=== PATIENT | female | born 1940 | race Caucasian/White ===

== ENCOUNTER → 2023-04-14 11:36 | Outpatient (BNVA) | payer MEDICARE, SELFPAY | PROVIDERS: Family Provider Family Medicine; Visit Provider Podiatrist Foot & Ankle Surgery | DX: S90.32XA Contusion of left foot, initial encounter; M19.072 Primary osteoarthritis, left ankle and foot; W01.0XXA Fall on same level from slipping, tripping and stumbling without subsequent striking against object, initial encounter | CPT/HCPCS: 73630; 99203 ==

== ENCOUNTER 2023-07-09 08:30 | Observation (INO) | payer MEDICARE, SELFPAY ==
[2023-07-09] VITALS (12 sets, daily range): BP systolic 130–161; BP diastolic 60–84; PULSE 61–75; RESP 14–20; TEMP 36.4–36.7; O2SAT 95–99
--- NOTE | 2023-07-09 08:40 | CTR_ITS ---
PROCEDURE INFORMATION: Exam: CT Head Without Contrast Exam date and time: 07/09/2023 8:50 AM Age: 82 years old Clinical indication: Stroke-like symptoms; Left facial droop; Additional info: Symptoms of acute stroke TECHNIQUE: Imaging protocol: Computed tomography of the head without contrast. Radiation optimization: All CT scans at this facility use at least one of these dose optimization techniques: automated exposure control; mA and/or kV adjustment per patient size (includes targeted exams where dose is matched to clinical indication); or iterative reconstruction. Other technique: STROKE PROTOCOL was implemented. COMPARISON: No relevant prior studies available. RADIATION DOSE METRICS: Total DLP (mGy-cm): 957.48 FINDINGS: Brain: There is no evidence of acute parenchymal hemorrhage, extra-axial collection, or acute infarction. There is no mass effect, midline shift, or downward herniation. Cerebral ventricles: No ventriculomegaly. Paranasal sinuses: Visualized sinuses are unremarkable. No fluid levels. Mastoid air cells: Visualized mastoid air cells are well aerated. Bones/joints: Unremarkable. No acute fracture. Soft tissues: Unremarkable. CT/CT head thrombolytic [id number] IMPRESSION: No acute intracranial abnormality. ASSESSMENT: ASPECTS ([place] Stroke Program Early CT Score) is 10.
--- NOTE | 2023-07-09 08:51 | ED_ITS ---
HPI - Neuro Symptoms/Deficit 2 General: Chief Complaint: Neuro Symptoms/Deficit Stated Complaint: LEFT FACIAL DROOP Time Seen by Provider: 07/09/23 08:35 Source: patient and family Mode of arrival: EMS History of Present Illness: 82-year-old female presents emergency ro with complaints of left-sided facial droop and weakness. She went to bed last night and was no significant abnormality when she woke up swelling she is complaining of being very weak noticed a little bit of left lower facial drooping and difficulty opening the left eye. EMS was called. They reported a stroke score 0 and no noticeable deficits when they arrived. Patient is has a history of mild dementia her is her main caregiver. She is not on any anticoagulants. Onset (ago): minute(s) Timing confirmed by: spouse Location: left face (Lower facial droop) History of same: No Severity: mild Quality: weak Relieving factors: none Exacerbating factors: none Context: other (Wake-up symptoms) Associated symptoms: Deny chest pain, cough, diaphoresis, fevers/chills, headache(s), anorexia, malaise, nausea, seizures, short of breath, syncope, tingling, vertigo, vomiting or weakness Treatments Prior to Arrival: none Review of Systems 2 Const: Denies: fever(s), chills, malaise or diaphoresis Card: Denies: chest pain or syncope Resp: Denies: dyspnea GI: Denies: abdominal pain, nausea or vomiting : Denies: dysuria, urinary frequency or urinary urgency Musc: Denies: neck pain or back pain Skin/Breast: Denies: rash Neuro: Denies: headache(s) or vertigo PFS ED 2 PFSH: Medical History Hypothyroidism Hypertension Dementia NIH stroke score 2 NIHSS: Level Of Consciousness - 1a: 2 (Due to cognitive deficits, per family at baseline) Level Of Consciousness Questions - 1b: Both Correct Level Of Consciousness Commands - 1c: Both Correct Best Gaze - 2: Normal Visual Clements - 3: No Visual Loss Facial Palsy - 4: Minor Paralysis (Lower left facial) Motor Arm Right - 5: No Drift Motor Arm Left - 5: No Drift M otor Leg Right - 6: No Drift Motor Leg Left - 6: No Drift Limb Ataxia - 7: Absent Sensory - 8: Normal Best Language - 9: No Aphasia Dysarthia - 10: Normal Extinction And Inattention - 11: 0 Score: Total Score: 3 Physical Exam 2 Const: GENERAL APPEARANCE: cooperative and comfortable O RIENTATION/CONSCIOUSNESS: Yes awake HENMT: COMMON NORMALS: normocephalic, atraumatic and hearing grossly normal bilaterally HEAD & SCALP: normocephalic and atraumatic Resp: COMMON NORMALS: normal respiratory effort, No retractions, No use of accessory muscles and clear to auscultation bilaterally AUSCULTATION: clear to auscultation bilaterally Cardio: COMMON NORMALS: regular rate, regular rhythm and No murmurs present (Cardio) RATE: regular rate RHYTHM: regular rhythm GI: COMMON NORMALS: Soft to palpation and No hepatosplenomegaly present A USCULTATION: Yes normoactive bowel sounds PALPATION: Yes Soft to palpation, No Tenderness to palpation present (GI), No Guarding due to palpation present (GI) and Yes No hepatosplenomegaly present Extremity: COMMON NORMALS: normal to inspection, capillary refill normal, no clubbing, cyanosis or edema, no calf tenderness and no pedal edema Skin: COMMON NORMALS: no rashes or lesions noted GENERAL SKIN EXAM: no rashes or lesions noted Course 2 Vital Signs: Vital signs: Vital Signs Temperature 97.5 F L 07/09/23 14:00 Pulse Rate 68 07/09/23 14:00 Respiratory Rate 17 07/09/23 14:00 Blood Pressure 145/80 07/09/23 14:00 Pulse Oximetry 97 07/09/23 13:57 Oxygen Delivery Me thod Room Air 07/09/23 13:57 MDM - Neuro Symptoms/Deficit Medical Decision Making CVA versus TIA. Stroke score is 1 when accounting for dementia issues. She is outside the timeframe for thrombolytics. She does not have a high enough stroke score to be a candidate for embolectomy. Will admit for further workup and instituting secondary prevention medications. Medical Records I reviewed the patient's medical records. Lab Data I reviewed the patient's lab results. 07/09/23 09:15 07/09/23 09:[address] 07/09/23 08:40 IMPRESSION: No acute intracranial abnormality. ASSESSMENT: ASPECTS ([place] Stroke Program Early CT Score) is 10. Laboratory Results WBC 5.22 10^3/uL (3.29-11.43) 07/09/23 09:15 RBC 4.71 10^6/uL (3.85-5.65) 07/09/23 09:15 Hgb 14.20 g/dL (11.27-16.99) 07/09/23 09:15 Hct 41.4 % (36-47) 07/09/23 09:15 MCV 87.9 fl (85-98) 07/09/23 09:15 MCH 30.1 pg (27-33) 07/09/23 09:15 MCHC 34.3 g/dL (30-55) 07/09/23 09:15 RDW 12.6 % (12.1-15.1) 07/09/23 09:15 Plt Count 218 10^3/cmm (157-399) 07/09/23 09:15 MPV 10.3 fL (7.4-10.4) 07/09/23 09:15 Neut % (Auto) 59.0 % 07/09/23 09:15 Lymph % (Auto) 29.9 % 07/09/23 09:15 [place] % (Auto) 9.0 % 07/09/23 09:15 Eos % (Auto) 1.3 % 07/09/23 09:15 Baso % (Auto) 0.6 % 07/09/23 09:15 Neut # (Auto) 3.08 10^3/uL (1.8-7.7) 07/09/23 09:15 Lymph # (Auto) 1.6 10^3/uL (0.8-4.8) 07/09/23 09:15 [place] # (Auto) 0.5 10^3/uL (0.2-0.9) 07/09/23 09:15 Eos # (Auto) 0.1 10^3/uL (0.0-0.8) 07/09/23 09:15 Baso # (Auto) 0.0 10^3/uL (0.0-0.1) 07/09/23 09:15 Nucleated RBC % (auto) 0 % 07/09/23 09:15 Nucleated RBCs # 0.0 /100WBC 07/09/23 09:15 PT 13.80 SECONDS (12.1-14.9) 07/09/23 09:15 INR 1.03 (0.8-1.2) 07/09/23 09:15 APTT 31.2 SECONDS (23.9-36.7) 07/09/23 09:15 Sodium 139 mmol/L (136-145) 07/09/23 09:15 Potassium 3.9 mmol/L (3.5-5.1) 07/09/23 09:15 Chloride 102 mmol/L (98-107) 07/09/23 09:15 Carbon Dioxide 27 mmol/L (22-29) 07/09/23 09:15 Anion Gap 13.9 (5-19) 07/09/23 09:15 BUN 18 mg/dL (8-23) 07/09/23 09:15 Creatinine 0.6 mg/dL (0.5-0.9) 07/09/23 09:15 GFR Calculation Not Reportable 07/09/23 09:15 Glucose 106 mg/dL (65-115) 07/09/23 09:15 Calculated Osmolality 290 mOsm/kg (285-295) 07/09/23 09:15 Calcium 9.5 mg/dL (8.5-10.5) 07/09/23 09:15 Total Bilirubin 0.6 mg/dL (0.15-1.2) 07/09/23 09:15 AST 21 U/L (0-32) 07/09/23 09:15 ALT 28 U/L (0-33) 07/09/23 09:15 Alkaline Phosphatase 67 U/L (35-105) 07/09/23 09:15 Total Protein 7.2 g/dL (6.6-8.7) 07/09/23 09:15 Albumin 3.9 g/dL (3.5-5.2) 07/09/23 09:15 Globulin 3.3 g/dL (1.3-4.6) 07/09/23 09:15 Urine Color Yellow (Yellow) 07/09/23 10:00 Urine Appearance Clear (CLEAR) 07/09/23 10:00 Urine pH 7 (5-7) 07/09/23 10:00 Ur Specific [place] 1.010 (1.005-1.030) 07/09/23 10:00 Urine Protein Neg (Negative) 07/09/23 10:00 Urine Glucose (UA) Norm (Normal) 07/09/23 10:00 Urine Ketones Negative (Negative) 07/09/23 10:00 Urine Blood Neg (Negative) 07/09/23 10:00 Urine Nitrate Negative (Negative) 07/09/23 10:00 Urine Bilirubin Neg (Negative) 07/09/23 10:00 Urine Urobilinogen Norm mg/dL (Negative) 07/09/23 10:00 Ur Leukocyte Esterase Negative (Negative) 07/09/23 10:00 Urine Opiates Screen Negative ng/mL (Negative) 07/09/23 10:00 Ur Barbiturates Screen Negative ng/mL (Negative) 07/09/23 10:00 Ur Phencyclidine Scrn Negative ng/mL (Negative) 07/09/23 10:00 Ur Amphetamines Screen Negative ng/mL (Negative) 07/09/23 10:00 U Benzodiazepines Scrn Negative ng/mL (Negative) 07/09/23 10:00 Urine Cocaine Screen Negative ng/mL (Negative) 07/09/23 10:00 U Marijuana (THC) Screen Negative ng/mL (Negative) 07/09/23 10:00 All radiology interpretation(s) finalized by discharge Discharge Plan Discharge Patient Disposition: Admitted As Inpatient Admit Provider: Cl Tyler Clinical Impression: TIA (transient ischemic attack), Dementia, Hypertension Condition: Stable Coding Level of Care Code ED [employer] Installer for Toña Brady
[2023-07-09 09:31] LABS: Basophils % 0.6 %; Eosinophils # 0.1 10^3/uL (0.0-0.8); Eosinophils % 1.3 %; Hematocrit 41.4 % (36-47); Lymphocytes # 1.6 10^3/uL (0.8-4.8); Lymphocytes % 29.9 %; Mean Corpuscular HGB Conc 34.3 g/dL (30-55); Mean Corpuscular Hemoglobin 30.1 pg (27-33); Mean Corpuscular Volume 87.9 fl (85-98); Mean Platelet Volume 10.3 fL (7.4-10.4); Monocytes # 0.5 10^3/uL (0.2-0.9); Neutrophils # 3.08 10^3/uL (1.8-7.7); Nucleated Red Blood Cells % 0 %; Platelet Count 218 10^3/cmm (157-399); Red Blood Count 4.71 10^6/uL (3.85-5.65); Red Cell Distribution Width 12.6 % (12.1-15.1); White Blood Count 5.22 10^3/uL (3.29-11.43)
[2023-07-09 09:45] LABS: INR 1.03 (0.8-1.2); Partial Thromboplastin Time 31.2 SECONDS (23.9-36.7)
[2023-07-09 09:54] LABS: Alanine Aminotransferase 28 U/L (0-33); Albumin Level 3.9 g/dL (3.5-5.2); Alkaline Phosphatase 67 U/L (35-105); Anion Gap 13.9 (5-19); Aspartate Amino Transferase 21 U/L (0-32); Blood Urea Nitrogen 18 mg/dL (8-23); Calcium 9.5 mg/dL (8.5-10.5); Carbon Dioxide 27 mmol/L (22-29); Chloride 102 mmol/L (98-107); Globulin 3.3 g/dL (1.3-4.6); Glucose 106 mg/dL (65-115); Osmolality Calculated 290 mOsm/kg (285-295); Potassium 3.9 mmol/L (3.5-5.1); Sodium 139 mmol/L (136-145); Total Bilirubin 0.6 mg/dL (0.15-1.2); Total Protein 7.2 g/dL (6.6-8.7)
--- NOTE | 2023-07-09 10:00 | ECG_ITS ---
[facility] Test Date: 2023-07-09 Pat Name: Kimberly Cooper Department: Room: Gender: Female Clinical Data Associate: : 1940 Requested By: Juwan Garcia Order Number: [id number] Itz MD: Perfecto Weiss M.D. Measurements Intervals [place] Rate: 63 P: 63 OK: 162 QRS: 60 QRSD: 92 T: 69 QT: 418 QTc: 428 Interpretive Statements SINUS RHYTHM LOW QRS VOLTAGE IN PRECORDIAL LEADS [QRS DEFLECTION < 1.0 mV IN CHEST LEADS] INCOMPLETE RIGHT BUNDLE BRANCH BLOCK [90+ ms QRS DURATION, TERMINAL R IN V1/V2, 40+ ms S IN I/aVL/V4/V5/V6] No previous ECG available for comparison Electronically Signed On 07-10-2023 8:27:49 GRILL CHEF by Perfecto Weiss M.D. [email or web address]
[2023-07-09 10:09] LABS: Add Urine Microscopic? NO; Charge for UA Resulting for Rev
[2023-07-09 10:12] LABS: Bilirubin Urine Neg (Negative); Blood Urine Neg (Negative); Glucose Urine UA Norm (Normal); Ketones Urine Negative (Negative); Leukocyte Esterase Urine Negative (Negative); Nitrate Urine Negative (Negative); Protein Urine Neg (Negative); Urine Appearance Clear (CLEAR); Urine Color Yellow (Yellow); Urobilinogen Urine Norm (Negative); pH Urine 7 (5-7)
[2023-07-09 10:30] LABS: Amphetamines Screen Urine Negative (Negative); Barbiturates Screen Urine Negative (Negative); Benzodiazepines Screen Urine Negative (Negative); Cocaine Screen Urine Negative (Negative); Opiate Screen Urine Negative (Negative); PCP Screen Urine Negative (Negative); THC Screen Urine Negative (Negative)
--- NOTE | 2023-07-09 10:49 | PC.PHAR ---
pts verified pts medications-pts brought in prescription med bottles and states he thinks he got all the otc items the pt takes
[2023-07-09] MEDS: aspirin 325 mg Tablet PO (12:12)
--- NOTE | 2023-07-09 13:02 | MRR_ITS ---
PROCEDURE INFORMATION: Exam: MR Head Without Contrast Exam date and time: 07/09/2023 4:13 PM Age: 82 years old Clinical indication: Altered mental status/memory loss and speech disturbance; Dysphasia; Additional info: TIA TECHNIQUE: Imaging protocol: Magnetic resonance imaging of the head without contrast. COMPARISON: CT head thrombolytic [id number] 07/09/2023 8:50 AM FINDINGS: Brain: Mild diffuse cerebral atrophy is noted. Cerebral ventricles: Normal. No ventriculomegaly. Bones/joints: Unremarkable. Paranasal sinuses: Normal as visualized. No acute sinusitis. Mastoid air cells: Normal as visualized. No mastoid effusion. Orbital cavities: Unremarkable. Soft tissues: Unremarkable. MR/MR head wo con* [id number] IMPRESSION: I see no acute abnormality. Mild cerebral atrophy noted
--- NOTE | 2023-07-09 13:07 | P.HP_ITS ---
Providers/Chief Complaint 2 Admitting Physician: Cl Tyler Chief Complaint: LEFT FACIAL DROOP History of Present Illness 82-year-old lady with history of dementia, hypertension, hypothyroidism was brought by EMS after they were called after her when trying to wake her up this morning from bed noticed that she had drooping of 1 side of her mouth as well as eye. This finding was apparently then showing some fluctuation on the way to the ER by EMS. Has since completely resolved. She does not provide history, history is to be obtained from family. She seems to remember she had trouble getting up from the bed, although it is not clear how reliable this is. No other motor, speech or vision deficits were reported. She has otherwise been at baseline state of health. Review of Systems 2 Const: Denies: fever(s), chills, body aches or malaise Eyes: Denies: change in vision ENMT: Denies: throat pain Card: Denies: chest pain, edema, pre-syncope or dyspnea on exertion Resp: Denies: dyspnea, productive cough, change in phlegm color or hemoptysis GI: Denies: abdominal pain, nausea, vomiting, diarrhea, constipation, hematochezia or melena : Denies: flank pain, urinary frequency or hematuria Musc: Denies: back pain, joint swelling or joint redness Skin/Breast: Denies: rash or new lesions Neuro: Reports: other (unilateral facial droop involving the eye); Denies: headache(s), numbness in extremities, weakness in extremities, dizziness, confusion or seizure-like activity Medications/Allergies Home Medications Medication Instructions Recorded Confirmed Last Taken Type amlodipine 5 mg tablet 5 mg PO DAILY 07/09/23 07/09/23 07/08/23 History ascorbic acid (vitamin C) 500 mg 500 mg PO BID 07/09/23 07/09/23 Unknown History tablet (Vitamin C) carica papaya (Papaya Enzyme 2 tab PO DAILY 07/09/23 07/09/23 Unknown History tablet) cholecalciferol (vitamin D3) 25 25 mcg PO DAILY 07/09/23 07/09/23 Unknown History mcg (1,000 unit) capsule (Vitamin D3) hydrochlorothiazide 25 mg tablet 25 mg PO DAILY 07/09/23 07/09/23 07/08/23 History levothyroxine 75 mcg tablet 75 mcg PO DAILY 07/09/23 07/09/23 07/08/23 History lisinopril 40 mg tablet 40 mg PO BID 07/09/23 07/09/23 07/08/23 History magnesium 250 mg tablet 250 mg PO DAILY 07/09/23 07/09/23 Unknown History omega-3 fatty acids 1,000 mg 1,000 mg PO DAILY 07/09/23 07/09/23 Unknown History capsule potassium gluconate 595 mg (99 mg) 595 mg PO DAILY 07/09/23 07/09/23 Unknown History tablet vitamin B complex 1 tab PO DAILY 07/09/23 07/09/23 Unknown History vitamin E 268 mg (400 unit) capsule 1 cap PO DAILY 07/09/23 07/09/23 Unknown History Allergies Allergy/AdvReac Type Severity Reaction Status Date / Time Sulfa (Sulfonamide Allergy Unknown Verified 07/09/23 10:43 Antibiotics) PFSH Acute 2 PFSH: Medical History Hypothyroidism Hypertension Dementia Vitals/I&O/Wt Last Vital Signs Temp 98.1 F 07/09/23 09:01 Pulse 68 07/09/23 12:37 Resp 20 H 07/09/23 12:37 BP 137/74 07/09/23 12:37 Pulse Ox 99 07/09/23 12:37 O2 Del Method Room Air 07/09/23 12:37 Physical Exam 2 Narrative: Accompanied by family. Const: COMMON NORMALS: patient oriented x3 and alert GENERAL APPEARANCE: c ooperative ORIENTATION/CONSCIOUSNESS: Yes awake HENMT: COMMON NORMALS: oropharynx normal Neck/C-Spine: COMMON NORMALS: no JVD Resp: COMMON NORMALS: normal respiratory effort and clear to auscultation bilaterally AUSCULTATION: clear to auscultation bilaterally Cardio: COMMON NORMALS: no JVD, regular rhythm, S1 normal heart sound present, S2 normal heart sound present and No murmurs present (Cardio) RHYTHM: regular rhythm HEART SOUNDS: S1 normal heart sound present and S2 normal heart sound present GI: COMMON NORMALS: Normal to inspection, nondistended, normoactive bowel sounds present, Soft to palpation and non-tender PALPATION: Yes Soft to palpation Extremity: COMMON NORMALS: no joint enlargement and no pedal edema Neuro: COMMON NORMALS: patient oriented x3 and moves all extremities S ENSORIUM/ORIENTATION: Yes alert OTHER: She is awake, alert, pleasant, cooperative, following directions readily. No difficulty tracking. Denies dizziness. No facial droop. No aphasia or dysarthria. Visual aguirre full to confrontation. No visual extinction. Sensory exam symmetrical, no sensory extinction. No upper or lower extremity drift. Skin: COMMON NORMALS: no rashes or lesions noted GENERAL SKIN EXAM: no rashes or lesions noted Data 07/09/23 09:15 07/09/23 09:15 A&P Assessment and plan (1) TIA (transient ischemic attack): History had to be obtained from family due to dementia. Somewhat unusual presentation, left-sided facial droop but also reported affecting the eye. Consideration of Meng's palsy but symptoms are entirely resolved. Possible pontine TIA. Risk of recurrent TIA, CVA. Initial hospitalization for additional work up. ER physician discussed with neurologist Dr. Johnson at [facility]. Will place in observation. Additional TIA workup. Reviewed vitals, CBC, INR, PTT, CMP, UA, UDS, head CT. Reviewed ER note, discussed w ER physician. Received aspirin. Start aspirin at home, start statin. Requested cholesterol panel, A1c. She likes to have a pepsi a day and snacks, but not hyperglycemic. Assess cartid duplex. TTE buybble study. Cardiac monitoring for AFib. Monitor blood pressure. Did well on bedside swallow, ok for diet. ST assessment. PT, OT Additional assessment w MR had if possible. Follow up w neurology after discharge. Plan HTN: continue medications. Monitor BP. Cardiac diet. Hypothyroidism: cont levothyroxine. Attestations 2 Medical Necessity Statement*: Place in observation for assessment and management of TIA Diagnoses TIA (transient ischemic attack) G45.9
--- NOTE | 2023-07-09 13:17 | PC.NURSE ---
report called to Bozena OLSEN, pt stable with no current complaints or concerns.
--- NOTE | 2023-07-09 13:40 | USCV_ITS ---
Kimberly Cooper Age: 82 Gender: F : 1940 Exam Date: 07/09/2023 15:16 Ordering Phys: Cl Tyler MD Technologist: Jamie Merino Exam Location: [facility] [place] Indication: tia BP: 145 / 80 HR: 64 Rhythm: Sinus Technical Quality: Adequate MEASUREMENTS (Male / Female) Normal Values 2D ECHO LVOT Diameter 2.0 cm LV Ejection Fraction MOD 2C 58.4 % LV Ejection Fraction 2C AL 60.3 % LA Diameter 3.1 cm LA Width 2.8 cm LA Height 3.5 cm RA Width 2.9 cm RA Height 3.5 cm Aorta at Sinotubular Diameter 2.5 cm IVC Diameter 1.4 cm M-MODE Aortic Annulus Diameter 2.3 cm LA Ao Ratio MM 1.3 MV E Point Septal Separation 0.3 cm DOPPLER AV Peak Velocity 174.0 cm/s LVOT Peak Velocity 120.0 cm/s AV Area Cont Eq vti 2.7 cm squared AV Area Cont Eq pk 2.3 cm squared MV Peak Velocity 137.0 cm/s MV Area PHT 3.3 cm squared Mitral E to A Ratio 0.6 MV E' Velocity 37.0 cm/s Mitral E to MV E' Ratio 10.4 Mitral E to LV E' Lateral Ratio 8.7 Mitral E to LV E' Septal Ratio 13.4 TR Peak Velocity 283.4 cm/s TR Peak Gradient 32.1 mmHg TR Mean Velocity 202.2 cm/s TR Mean Gradient 18.1 mmHg TR Velocity Time Integral 81.8 cm Right Atrial Pressure 3.0 mmHg Pulmonary Artery Systolic Pressu 35.1 mmHg PV Peak Velocity 93.0 cm/s RV Acceleration Time 0.1 s RV Ejection Time 0.3 s RV AcT/ET 0.4 FINDINGS Left Ventricle Normal left ventricular cavity size. Mild left ventricular hypertrophy. Normal left ventricular systolic function. Left ventricular ejection fraction is estimated at 65%. Grade I/IV diastolic dysfunction (abnormal relaxation filling pattern), normal to mildly elevated filling pressures. Right Ventricle Normal right ventricular size and systolic function. Normal right ventricular systolic pressure. Right Atrium The right atrium is normal in size. Left Atrium The left atrium is normal in size. Mitral Valve Structurally normal mitral valve without significant stenosis or prolapse. There is no mitral regurgitation. Aortic Valve Structurally normal trileaflet aortic valve. Mild aortic valve regurgitation. No aortic valve stenosis. Tricuspid Valve Structurally normal tricuspid valve. Trace tricuspid valve regurgitation. Pulmonic Valve Pulmonic valve not well visualized. Pericardium Normal pericardium without effusion. Aorta Normal ascending aorta dimension. IVC The inferior vena cava appears normal. CONCLUSIONS Normal left ventricular cavity size. Mild left ventricular hypertrophy. Normal left ventricular systolic function. Left ventricular ejection fraction is estimated at 65%. Grade I/IV diastolic dysfunction (abnormal relaxation filling pattern), normal to mildly elevated filling pressures. Structurally normal trileaflet aortic valve. Mild aortic valve regurgitation. No aortic valve stenosis. A bubble study was performed. No shunt was identified. There are no prior echocardiogram studies to compare. Dr. Perfecto Weiss MD (Electronically Signed) Final Date: 09 July 2023 17:35 S
[2023-07-09] MEDS: sodium chloride 0.9% 1,000 ML 100 ML IV (15:43)
[2023-07-09] MEDS: lisinopril 20 mg Tablet 40 MG PO (17:40)
[2023-07-09] MEDS: atorvastatin 40 mg Tablet PO (21:16)
[2023-07-10 00:39] VITALS: BP 125/76; PULSE 72; RESP 17; TEMP 36.6; O2SAT 94
[2023-07-10] MEDS: sodium chloride 0.9% 1,000 ML 100 ML IV (02:09)
[2023-07-10 02:15] LABS: Estmated Average Glucose 123; Hemoglobin A1C 5.9 % (4.0-6.0)
[2023-07-10 02:18] LABS: Cholesterol 189 mg/dL (0-200); HDL Cholesterol 45 mg/dL (60-100); LDL Cholesterol Calculated 119 mg/dL (50-129); LDL HDL Ratio 2.64 RATIO (0.00-3.22); Triglycerides 126 mg/dL (0-150)
[2023-07-10 04:44] VITALS: BP 125/78; PULSE 59; RESP 19; TEMP 36.6; O2SAT 94
[2023-07-10 05:45] VITALS: PULSE 58
--- NOTE | 2023-07-10 06:00 | USR_ITS ---
PROCEDURE INFORMATION: Exam: US Duplex Bilateral Extracranial Arteries; Complete; Carotid Arteries Exam date and time: 07/10/2023 7:31 AM Age: 82 years old Clinical indication: Other: TIA TECHNIQUE: Imaging protocol: Real-time duplex ultrasound scan of the bilateral extracranial arteries combining montes scale, color Doppler and spectral waveform analysis with image documentation. Complete exam. Exam focused on the carotid arteries. COMPARISON: CT head thrombolytic [id number] 07/09/2023 8:50 AM FINDINGS: Right common carotid artery: Unremarkable. No occlusion or stenosis. Waveforms are normal. Right internal carotid artery: Unremarkable. No occlusion or stenosis. Waveforms are normal. Right ICA/CCA ratio: Within normal limits. Right external carotid artery: No stenosis in the origin. Right vertebral artery: Unremarkable. Antegrade flow. Left common carotid artery: Unremarkable. No occlusion or stenosis. Waveforms are normal. Left internal carotid artery: Unremarkable. No occlusion or stenosis. Waveforms are normal. Left ICA/CCA ratio: Within normal limits. Left external carotid artery: No stenosis in the origin. Left vertebral artery: Unremarkable. Antegrade flow. US/CV carotid duplex BI* [id number] IMPRESSION: No carotid arterial stenosis. REFERENCES: SRU CRITERIA. The degree of internal carotid artery stenosis is based on criteria defined by the Society of Radiologists in Ultrasound (SRU). Normal is no stenosis. Mild is less than 50% stenosis. Moderate is 50-69% stenosis. Severe is greater than 69% stenosis to near occlusion. Near occlusion is a markedly narrowed lumen. Total occlusion is no detectable patent lumen.
[2023-07-10 07:50] VITALS: BP 150/81; PULSE 67; RESP 15; TEMP 36.8; O2SAT 96
[2023-07-10] MEDS: lisinopril 20 mg Tablet 40 MG PO (08:53)
[2023-07-10] MEDS: hydroCHLOROthiazide 25 mg Tablet PO (08:53)
[2023-07-10] MEDS: levothyroxine 75 mcg Tablet PO (08:53)
[2023-07-10] MEDS: aspirin 81 mg EC Tablet PO (08:54)
[2023-07-10] MEDS: amlodipine 5 mg Tablet PO (08:54)
--- NOTE | 2023-07-10 11:12 | P.DS_ITS ---
Discharge Providers Date of Admission: 07/09/23 11:22 Date of Discharge: July 10, 2023 Attending Provider at Admission: Cl Tyler Attending Provider at Discharge: Cl Tyler Diagnoses at Discharge Discharge Diagnosis (1) TIA (transient ischemic attack): Status: Acute Reason for Visit Reason for Visit: LEFT FACIAL DROOP Brief History: 82-year-old lady with history of dementi a, hypertension, hypothyroidism was brought by EMS after they were called after her when trying to wake her up this morning from bed noticed that she had drooping of 1 side of her mouth as well as eye. This finding was apparently then showing some fluctuation on the way to the ER by EMS. Has since completely resolved. She does not provide history, history is to be obtained from family. She seems to remember she had trouble getting up from the bed, although it is not clear how reliable this is. No other motor, speech or vision deficits were reported. She has otherwise been at baseline state of health. Hospital Course Hospital Course She was additionally assessed in the hospital overnight. Her symptoms had not recurred. She was started on aspirin, statin. Urinalysis was unremarkable. Was assessed by carotid duplex, echocardiogram with bubble study, both unremarkable. A1c was 5.9. She is doing well this morning. Feels ready to return home. Ambulating in room. EKG without atrial fibrillation. Discussed with her and her setting up cardiac monitoring for additional assessment. She is noted to have some very mild bradycardia overnight down into the high 50s. Discussed with the to continue monitoring blood pressures, check blood pressure in case of any abnormal symptoms, in case of recurrence of her prior symptoms or new concerning symptoms discussed to seek medical attention immediately in case of possible stroke. Physical Exam Narrative: Accompanied by family. Const: COMMON NORMALS: patient oriented x3 and alert GENERAL APPEARANCE: cooperative ORIENTATION/CONSCIOUSNESS: Yes awake HENMT: COMMON NORMALS: oropharynx normal Neck/C-Spine: COMMON NORMALS: no JVD Resp: COMMON NORMALS: normal respiratory effort and clear to auscultation bilaterally AUSCULTATION: clear to auscultation bilaterally Cardio: COMMON NORMALS: no JVD, regular rhythm, S1 normal heart sound present, S2 normal heart sound present and No murmurs present (Cardio) RHYTHM: regular rhythm HEART SOUNDS: S1 normal heart sound present and S2 normal heart sound present GI: COMMON NORMALS: Normal to inspection, nondistended, normoactive bowel sounds present, Soft to palpation and non-tender PALPATION: Yes Soft to palp ation Extremity: COMMON NORMALS: no joint enlargement and no pedal edema Neuro: COMMON NORMALS: patient oriented x3 and moves all extremities SENSORIUM/ORIENTATION: Yes alert OTHER: She is awake, alert, pleasant, cooperative, following directions readily. No difficulty tracking. Denies dizziness. No facial droop. No aphasia or dysarthria. Visual aguirre full to confrontation. No visual extinction. Sensory exam symmetrical, no sensory extinction. No upper or lower extremity drift. Skin: COMMON NORMALS: no rashes or lesions noted GENERAL SKIN EXAM: no rashes or lesions noted Discharge Data Studies Completed and Pending Completed Studies During Hospitalization Category Date Time Status CT head thrombolytic [id number] Stat Cat Scan 07/09/23 08:40 Completed MR head wo con* [id number] Routine MRI 07/09/23 13:02 Completed CV carotid duplex BI* [id number] Routine Ultrasound 07/10/23 06:00 Completed CV. echo w/w bubble cont [id number] Routine Ultrasound 07/09/23 13:40 Completed Radiology Impressions Head CT 07/09/23 08:40 IMPRESSION: No acute intracranial abnormality. ASSESSMENT: ASPECTS ([place] Stroke Program Early CT Score) is 10. Head MRI 07/09/23 13:02 IMPRESSION: I see no acute abnormality. Mild cerebral atrophy noted Carotid Doppler Study 07/10/23 06:00 IMPRESSION: No carotid arterial stenosis. REFERENCES: SRU CRITERIA. The degree of internal carotid artery stenosis is based on criteria defined by the Society of Radiologists in Ultrasound (SRU). Normal is no stenosis. Mild is less than 50% stenosis. Moderate is 50-69% stenosis. Severe is greater than 69% stenosis to near occlusion. Near occlusion is a markedly narrowed lumen. Total occlusion is no detectable patent lumen. Laboratory Results WBC 5.22 10^3/uL (3.29-11.43) 07/09/23 09:15 RBC 4.71 10^6/uL (3.85-5.65) 07/09/23 09:15 Hgb 14.20 g/dL (11.27-16.99) 07/09/23 09:15 Hct 41.4 % (36-47) 07/09/23 09:15 MCV 87.9 fl (85-98) 07/09/23 09:15 MCH 30.1 pg (27-33) 07/09/23 09:15 MCHC 34.3 g/dL (30-55) 07/09/23 09:15 RDW 12.6 % (12.1-15.1) 07/09/23 09:15 Plt Count 218 10^3/cmm (157-399) 07/09/23 09:15 MPV 10.3 fL (7.4-10.4) 07/09/23 09:15 Neut % (Auto) 59.0 % 07/09/23 09:15 Lymph % (Auto) 29.9 % 07/09/23 09:15 [place] % (Auto) 9.0 % 07/09/23 09:15 Eos % (Auto) 1.3 % 07/09/23 09:15 Baso % (Auto) 0.6 % 07/09/23 09:15 Neut # (Auto) 3.08 10^3/uL (1.8-7.7) 07/09/23 09:15 Lymph # (Auto) 1.6 10^3/uL (0.8-4.8) 07/09/23 09:15 [place] # (Auto) 0.5 10^3/uL (0.2-0.9) 07/09/23 09:15 Eos # (Auto) 0.1 10^3/uL (0.0-0.8) 07/09/23 09:15 Baso # (Auto) 0.0 10^3/uL (0.0-0.1) 07/09/23 09:15 Nucleated RBC % (auto) 0 % 07/09/23 09:15 Nucleated RBCs # 0.0 /100WBC 07/09/23 09:15 PT 13.80 SECONDS (12.1-14.9) 07/09/23 09:15 INR 1.03 (0.8-1.2) 07/09/23 09:15 APTT 31.2 SECONDS (23.9-36.7) 07/09/23 09:15 Sodium 139 mmol/L (136-145) 07/09/23 09:15 Potassium 3.9 mmol/L (3.5-5.1) 07/09/23 09:15 Chloride 102 mmol/L (98-107) 07/09/23 09:15 Carbon Dioxide 27 mmol/L (22-29) 07/09/23 09:15 Anion Gap 13.9 (5-19) 07/09/23 09:15 BUN 18 mg/dL (8-23) 07/09/23 09:15 Creatinine 0.6 mg/dL (0.5-0.9) 07/09/23 09:15 GFR Calculation Not Reportable 07/09/23 09:15 Glucose 106 mg/dL (65-115) 07/09/23 09:15 Estimat Average Glucose 123 07/10/23 00:00 Hemoglobin A1c 5.9 % (4.0-6.0) 07/10/23 00:00 Calculated Osmolality 290 mOsm/kg (285-295) 07/09/23 09:15 Calcium 9.5 mg/dL (8.5-10.5) 07/09/23 09:15 Total Bilirubin 0.6 mg/dL (0.15-1.2) 07/09/23 09:15 AST 21 U/L (0-32) 07/09/23 09:15 ALT 28 U/L (0-33) 07/09/23 09:15 Alkaline Phosphatase 67 U/L (35-105) 07/09/23 09:15 Total Protein 7.2 g/dL (6.6-8.7) 07/09/23 09:15 Albumin 3.9 g/dL (3.5-5.2) 07/09/23 09:15 Globulin 3.3 g/dL (1.3-4.6) 07/09/23 09:15 Triglycerides 126 mg/dL (0-150) 07/10/23 00:00 Cholesterol 189 mg/dL (0-200) 07/10/23 00:00 LDL Cholesterol, Calc 119 mg/dL (50-129) 07/10/23 00:00 HDL Cholesterol 45 mg/dL (60-100) L 07/10/23 00:00 LDL/HDL Ratio 2.64 RATIO (0.00-3.22) 07/10/23 00:00 Cholesterol/HDL Ratio 4.20 mg/dL (0.0-4.40) 07/10/23 00:00 Urine Color Yellow (Yellow) 07/09/23 10:00 Urine Appearance Clear (CLEAR) 07/09/23 10:00 Urine pH 7 (5-7) 07/09/23 10:00 Ur Specific [place] 1.010 (1.005-1.030) 07/09/23 10:00 Urine Protein Neg (Negative) 07/09/23 10:00 Urine Glucose (UA) Norm (Normal) 07/09/23 10:00 Urine Ketones Negative (Negative) 07/09/23 10:00 Urine Blood Neg (Negative) 07/09/23 10:00 Urine Nitrate Negative (Negative) 07/09/23 10:00 Urine Bilirubin Neg (Negative) 07/09/23 10:00 Urine Urobilinogen Norm mg/dL (Negative) 07/09/23 10:00 Ur Leukocyte Esterase Negative (Negative) 07/09/23 10:00 Urine Opiates Screen Negative ng/mL (Negative) 07/09/23 10:00 Ur Barbiturates Screen Negative ng/mL (Negative) 07/09/23 10:00 Ur Phencyclidine Scrn Negative ng/mL (Negative) 07/09/23 10:00 Ur Amphetamines Screen Negative ng/mL (Negative) 07/09/23 10:00 U Benzodiazepines Scrn Negative ng/mL (Negative) 07/09/23 10:00 Urine Cocaine Screen Negative ng/mL (Negative) 07/09/23 10:00 U Marijuana (THC) Screen Negative ng/mL (Negative) 07/09/23 10:00 Vitals Last Vital Signs Temp 98.3 F 07/10/23 07:50 Pulse 67 07/10/23 07:50 Resp 15 07/10/23 07:50 BP 150/81 07/10/23 07:50 Pulse Ox 96 07/10/23 07:50 O2 Del Method Room Air 07/10/23 07:50 Discharge Plan Discharge Patient Disposition: Home Condition: Stable Prescriptions: New aspirin 81 mg Tablet,Delayed Release (Dr/Ec) 81 mg PO DAILY Qty: 90 0RF atorvastatin 40 mg Tablet 40 mg PO BEDTIME Qty: 90 0RF Continued Fish Oil Concentrate 1,000 mg Capsule 1,000 mg PO DAILY amlodipine 5 mg tablet 5 mg PO DAILY levothyroxine 75 mcg tablet 75 mcg PO DAILY Vitamin C 500 mg Tablet 500 mg PO BID vitamin B complex Tablet 1 tab PO DAILY magnesium 250 mg Tablet 250 mg PO DAILY hydrochlorothiazide 25 mg tablet 25 mg PO DAILY lisinopril 40 mg tablet 40 mg PO BID vitamin E 268 mg (400 unit) Capsule 1 cap PO DAILY Vitamin D3 25 mcg (1,000 unit) Capsule 25 mcg PO DAILY potassium gluconate 595 mg (99 mg) Tablet 595 mg PO DAILY Papaya Enzyme Tablet 2 tab PO DAILY Discharge Orders: Discharge Order (Routine); Ordered 07/10/23 Ordered By: Cl Tyler Other Ambulatory Orders: MCT/Event Monitor 14 Days (Routine) Timeframe: 1 Day Facility: [facility] - Location: Radiology Ordered By: Cl Tyler Referrals: [facility] [Provider Group] - 1 week (TIA) Sumit Gomez [Family Provider] - 4-7 days Discharge Diet: Cardiac Patient Instructions: Aspirin (By mouth), Atorvastatin (By mouth), Transient Ischemic Attack (GEN) Activity Restrictions/Additional Instructions: Follow-up with your primary doctor and neurologist for reassessment after a transient ischemic attack. Call 911 immediately in case of any further recurrence of symptoms or new concerning symptoms. You are being set up with a heart monitor for additional assessment for irregular heartbeat, additionally your heart rate is found to be slightly on the slow side sometimes dipping into 50s. Avoid medications that may slow down your heart rate. You are started on aspirin, avoid injury, bleeding. You are started on cluster medication, please have your primary doctor follow-up your liver parameters to make sure there is no liver toxicity, and let your primary doctor know immediately in case of any diffuse muscle pains or weakness. Continue follow-up with your primary doctor for reassessment and optimization of control of hypertension. Discharge Attestations Time Spent in Discharge Care*: greater than 30 min Quality Metrics Clinical Quality Measures [ No reported AMI, CVA or VTE this stay] Coding Level of Care Code 56387 Total time (in minutes) for Discharge: 45 Diagnoses TIA (transient ischemic attack) G45.9
--- NOTE | 2023-07-10 11:50 | PC.OT ---
Pt declines OT eval due to discharge status.
[2023-07-10 12:04] VITALS: BP 150/81; PULSE 67; RESP 15; TEMP 36.8; O2SAT 96
== END 2023-07-10 12:05 | disposition home or self-care (01) ==
LOC: ER 08:55 → MEDSURG 15:11
PROVIDERS: Admitting Provider Internal Medicine; Emergency Provider Family Medicine; Family Provider Family Medicine; Visit Provider Internal Medicine
DX: G45.9 Transient cerebral ischemic attack, unspecified (principal); R29.703 NIHSS score 3; E03.9 Hypothyroidism, unspecified; I10 Essential (primary) hypertension; F03.90 Unspecified dementia, unspecified severity, without behavioral disturbance, psychotic disturbance, mood disturbance, and anxiety
CPT/HCPCS: 36415; 70450; 70551; 80053; 80061; 80306; 81003; 83036; 85025; 85610; 85730; 93005; 93880; 97161; 99285; C8929; G0378; J7030

== ENCOUNTER 2024-02-03 08:04 | Emergency (ER) | payer MEDICARE, SELFPAY ==
[2024-02-03 08:07] VITALS: BP 135/82; PULSE 85; TEMP 38.1; O2SAT 93
--- NOTE | 2024-02-03 08:09 | CT_ITS ---
WS: [id number] CT HEAD TECHNIQUE: Noncontrast CT of the head obtained from the skullbase to the vertex. CLINICAL INFORMATION: ams COMPARISON: MRI and CT 07/09/2023 DLP: 1067.[address] scans at [facility] use at least one of these dose optimization techniques: automated e xposure control; mA and/or kV adjustment per patient size (includes targeted exams where dose is matc hed to clinical indication); or iterative reconstruction. FINDINGS: No evidence of intracranial hemorrhage or mass effect. Ventricular system and basal cisterns are dodd nt. Mild small vessel changes. Moderate parenchymal volume loss. Encephalomalacia in the RIGHT tempor al lobe unchanged since the prior MRI. Vascular calcification. Mucosal thickening in the ethmoid air cells. Mastoid air cells are well aerated. Normal posterior nasopharynx. CT/CT head wo con* [id number] IMPRESSION: 1. No evidence of intracranial hemorrhage or mass effect. 2. Mild small vessel changes. Moderate parenchymal volume loss. 3. Encephalomalacia in the RIGHT temporal lobe unchanged since the prior MRI. 4. Vascular calcification. 5. No acute intracranial findings.
--- NOTE | 2024-02-03 08:09 | XR_ITS ---
WS: [id number] Examination: XR chest 1V portable [id number] Reason for Exam: ams Date: February 03, 2024 Comparison: None. Findings: The heart is not enlarged. The mediastinum is not widened on this rotated AP portable film There is mild increase in the central markings without overt failure or large effusion. There is no d ense consolidation. XR/XR chest 1V portable [id number] IMPRESSION: There is no edema or consolidation.
--- NOTE | 2024-02-03 08:10 | ED_ITS ---
HPI - General Adult 2 General: Chief complaint: Altered Mental Status Stated complaint: ams Time Seen by Provider: 02/03/24 08:09 Source: EMS Mode of arrival: EMS Limitations: no limitations History of Present Illness: 83-year-old female's had a history of a stroke in the past she also has a history of dementia lives at assisted living per EMS in assisted living states that patient's been more altered weaker and had increased dysarthria since last night her last known normal was yesterday. Per EMS she has some left-sided deficits from her previous stroke along with some dysarthria but states that it is worse than her baseline she had increased confusion she is able to tell me her name here she does have pretty severe dysarthria hard to understand not really able answer any other questions Related Data Home Medications Medication Instructions Recorded Confirmed amlodipine 5 mg tablet 5 mg PO DAILY 07/09/23 01/16/24 ascorbic acid (vitamin C) 500 mg 500 mg PO BID 07/09/23 01/16/24 tablet (Vitamin C) carica papaya (Papaya Enzyme 2 tab PO DAILY 07/09/23 01/16/24 tablet) cholecalciferol (vitamin D3) 25 25 mcg PO DAILY 07/09/23 01/16/24 mcg (1,000 unit) capsule (Vitamin D3) hydrochlorothiazide 25 mg tablet 25 mg PO DAILY 07/09/23 01/16/24 levothyroxine 75 mcg tablet 75 mcg PO DAILY 07/09/23 01/16/24 lisinopril 40 mg tablet 40 mg PO BID 07/09/23 01/16/24 magnesium 250 mg tablet 250 mg PO DAILY 07/09/23 01/16/24 omega-3 fatty acids 1,000 mg 1,000 mg PO DAILY 07/09/23 01/16/24 capsule potassium gluconate 595 mg (99 mg) 595 mg PO DAILY 07/09/23 01/16/24 tablet vitamin B complex 1 tab PO DAILY 07/09/23 01/16/24 vitamin E 268 mg (400 unit) capsule 1 cap PO DAILY 07/09/23 01/16/24 Previous Rx's Medication Instructions Recorded aspirin 81 mg tablet,delayed 81 mg PO DAILY #90 tabs 07/10/23 release atorvastatin 40 mg tablet 40 mg PO BEDTIME #90 tabs 07/10/23 Allergies Allergy/AdvReac Type Severity Reaction Status Date / Time Sulfa (Sulfonamide Allergy Unknown Verified 02/03/24 08:15 Antibiotics) Review of Systems 2 General: Reports: ROS unobtainable due to mental status PFSH ED 2 PFSH: Medical History Hypothyroidism Hypertension Dementia Physical Exam 2 Const: COMMON NORMALS: negative for patient oriented x3 HENMT: COMMON NORMALS: normocephalic and atraumatic HEAD & SCALP: n ormocephalic and atraumatic Eye: COMMON NORMALS: Equal, round and reactive pupils present and EOMs intact bilaterally PUPIL: Yes Equal, round and reactive pupils present Neck/C-Spine: COMMON NORMALS: full ROM and supple Chest: COMMONS NORMALS: normal inspection of the chest Resp: COMMON NORMALS: normal respiratory effort, No retractions, No use of accessory muscles and clear to auscultation bilaterally AUSCULTATION: clear to auscultation bilaterally Cardio: COMMON NORMALS: regular rate, regular rhythm and No murmurs present (Cardio) RATE: regular rate RHYTHM: regular rhythm GI: COMMON NORMALS: Normal to inspection, nondistended, normoactive bowel sounds present, Soft to palpation, non-tender and no masses PALPATION: Yes Soft to palpation Extremity: COMMON NORMALS: normal to inspection and full ROM Neuro: COMMON NORMALS: moves all extremities; negative for patient oriented x3 Psych: COMMON NORMALS: mental status grossly normal, Normal thought process present and cooperative THOUGHT PROCESS: Normal thought process present Skin: COMMON NORMALS: no rashes or lesions noted and no wounds GENERAL SKIN EXAM: no rashes or lesions noted Course 2 Vital Signs: Vital signs: Vital Signs Temperature 98.8 F 02/03/24 09:57 Pulse Rate 81 02/03/24 09:57 Blood Pressure 127/80 02/03/24 09:57 Pulse Oximetry 93 02/03/24 09:57 Oxygen Delivery Me thod Room Air 02/03/24 08:07 MDM - General Adult Medical Decision Making Patient presents here with the fever some slight increased weakness I spoke to family she is at her baseline mental status. She does have COVID likely causing the symptoms no signs of being septic white counts normal did speak to family feels she is stable for discharge back to [place] her she is to have Motrin Tylenol for fever return if worsening they understand agree to plan Medical Records I reviewed the patient's medical records. Lab Data I reviewed the patient's lab results. 02/03/24 08:21 02/03/24 08:21 Radiology Impressions Chest X-Ray 02/03/24 08:09 IMPRESSION: There is no edema or consolidation. Head CT 02/03/24 08:09 IMPRESSION: 1. No evidence of intracranial hemorrhage or mass effect. 2. Mild small vessel changes. Moderate parenchymal volume loss. 3. Encephalomalacia in the RIGHT temporal lobe unchanged since the prior MRI. 4. Vascular calcification. 5. No acute intracranial findings. Laboratory Results WBC 8.46 10^3/uL (3.29-11.43) 02/03/24 08:21 RBC 4.74 10^6/uL (3.85-5.65) 02/03/24 08:21 Hgb 14.10 g/dL (11.27-16.99) 02/03/24 08:21 Hct 41.7 % (36-47) 02/03/24 08:21 MCV 88.0 fl (85-98) 02/03/24 08:21 MCH 29.7 pg (27-33) 02/03/24 08:21 MCHC 33.8 g/dL (30-55) 02/03/24 08:21 RDW 13.2 % (12.1-15.1) 02/03/24 08:21 Plt Count 226 10^3/cmm (157-399) 02/03/24 08:21 MPV 10.0 fL (7.4-10.4) 02/03/24 08:21 Neut % (Auto) 79.5 % 02/03/24 08:21 Lymph % (Auto) 8.9 % 02/03/24 08:21 [place] % (Auto) 10.6 % 02/03/24 08:21 Eos % (Auto) 0.2 % 02/03/24 08:21 Baso % (Auto) 0.6 % 02/03/24 08:21 Neut # (Auto) 6.72 10^3/uL (1.8-7.7) 02/03/24 08:21 Lymph # (Auto) 0.8 10^3/uL (0.8-4.8) 02/03/24 08:21 [place] # (Auto) 0.9 10^3/uL (0.2-0.9) 02/03/24 08:21 Eos # (Auto) 0.0 10^3/uL (0.0-0.8) 02/03/24 08:21 Baso # (Auto) 0.1 10^3/uL (0.0-0.1) 02/03/24 08:21 Nucleated RBC % (auto) 0 % 02/03/24 08:21 Nucleated RBCs # 0.0 /100WBC 02/03/24 08:21 PT 14.60 SECONDS (12.1-14.9) 02/03/24 08:21 INR 1.10 (0.8-1.2) 02/03/24 08:21 Sodium 131 mmol/L (136-145) L 02/03/24 08:21 Potassium 3.3 mmol/L (3.5-5.1) L 02/03/24 08:21 Chloride 95 mmol/L (98-107) L 02/03/24 08:21 Carbon Dioxide 20 mmol/L (22-29) L 02/03/24 08:21 Anion Gap 19.3 (5-19) H 02/03/24 08:21 BUN 10 mg/dL (8-23) 02/03/24 08:21 Creatinine 0.5 mg/dL (0.5-0.9) 02/03/24 08:21 GFR Calculation Not Reportable 02/03/24 08:21 Glucose 111 mg/dL (65-115) 02/03/24 08:21 Calculated Osmolality 272 mOsm/kg (285-295) L 02/03/24 08:21 Calcium 8.9 mg/dL (8.5-10.5) 02/03/24 08:21 Magnesium 1.8 mg/dL (1.7-2.3) 02/03/24 08:21 Total Bilirubin 0.8 mg/dL (0.15-1.2) 02/03/24 08:21 AST 21 U/L (0-32) 02/03/24 08:21 ALT 23 U/L (0-33) 02/03/24 08:21 Alkaline Phosphatase 75 U/L (35-105) 02/03/24 08:21 Total Protein 6.7 g/dL (6.6-8.7) 02/03/24 08:21 Albumin 3.7 g/dL (3.5-5.2) 02/03/24 08:21 Globulin 3.0 g/dL (1.3-4.6) 02/03/24 08:21 Lipase 12 U/L (13-60) L 02/03/24 08:21 TSH 1.74 uIU/mL (0.27-4.20) 02/03/24 08:21 Urine Color Yellow (Yellow) 02/03/24 08:30 Urine Appearance Clear (CLEAR) 02/03/24 08:30 Urine pH 6.5 (5-7) 02/03/24 08:30 Ur Specific [place] 1.013 (1.005-1.030) 02/03/24 08:30 Urine Protein Negative (Negative) 02/03/24 08:30 Urine Glucose (UA) Negative (Normal) 02/03/24 08:30 Urine Ketones Negative (Negative) 02/03/24 08:30 Urine Blood 1+ (Negative) A 02/03/24 08:30 Urine Nitrate Negative (Negative) 02/03/24 08:30 Urine Bilirubin Negative (Negative) 02/03/24 08:30 Urine Urobilinogen 1.0 mg/dL (Negative) 02/03/24 08:30 Ur Leukocyte Esterase Negative (Negative) 02/03/24 08:30 Urine RBC 6-10 /hpf (0-2) 02/03/24 08:30 Urine WBC 0-5 /hpf (0-5) 02/03/24 08:30 Ur Squamous Epith Cells 0-5 /hpf (0-5) 02/03/24 08:30 Amorphous Sediment Not Reportable 02/03/24 08:30 Urine Bacteria None seen /hpf (NONE) 02/03/24 08:30 Hyaline Casts 0.81 /lpf 02/03/24 08:30 SARS-CoV-2 Ag (Rapid) positive (Negative) H 02/03/24 08:32 All radiology interpretation(s) finalized by discharge EKG Data EKG 1: I personally reviewed and interpreted this EKG as follows: EKG interpretation date: 02/03/24 EKG interpretation time: 09:03 Interpretation: nsr hr [address] elevation qrs 91 qtc 415 Computer generated interpretation: Chest X-Ray 02/03/24 08:09 IMPRESSION: There is no edema or consolidation. Head CT 02/03/24 08:09 IMPRESSION: 1. No evidence of intracranial hemorrhage or mass effect. 2. Mild small vessel changes. Moderate parenchymal volume loss. 3. Encephalomalacia in the RIGHT temporal lobe unchanged since the prior MRI. 4. Vascular calcification. 5. No acute intracranial findings. Discharge Plan Discharge Patient Disposition: Home Clinical Impression: COVID-19 Condition: Stable Prescriptions: No Action omega-3 fatty acids 1,000 mg Capsule 1,000 mg PO DAILY amlodipine 5 mg tablet 5 mg PO DAILY levothyroxine 75 mcg tablet 75 mcg PO DAILY Vitamin C 500 mg Tablet 500 mg PO BID vitamin B complex Tablet 1 tab PO DAILY magnesium 250 mg Tablet 250 mg PO DAILY hydrochlorothiazide 25 mg tablet 25 mg PO DAILY lisinopril 40 mg tablet 40 mg PO BID vitamin E 268 mg (400 unit) Capsule 1 cap PO DAILY Vitamin D3 25 mcg (1,000 unit) Capsule 25 mcg PO DAILY potassium gluconate 595 mg (99 mg) Tablet 595 mg PO DAILY Papaya Enzyme Tablet 2 tab PO DAILY atorvastatin 40 mg Tablet 40 mg PO BEDTIME Qty: 90 0RF aspirin 81 mg Tablet,Delayed Release (Dr/Ec) 81 mg PO DAILY Qty: 90 0RF Discharge Orders: Discharge ED (Routine); Ordered 02/03/24 Ordered By: José Miguel Mack Referrals: Sumit Ramirez DO [Primary Care Provider] - 4-7 days Sumit Gomez [Family Provider] - Discharge Diet: Advance as tolerated Discharge Activity: Resume usual activity Patient Instructions: COVID-19 (Coronavirus Disease 2019) (ED) Coding Level of Care Code ED Can Filling And Closing Machine Tender for [place] NIH stroke score NIHSS Level Of Consciousness - 1a: 0 Level Of Consciousness Questions - 1b: Both Correct Level Of Consciousness Commands - 1c: Both Correct Best Gaze - 2: Normal Visual Clements - 3: No Visual Loss Facial Palsy - 4: Minor Paralysis Motor Arm Right - 5: No Drift Motor Arm Left - 5: No Drift Motor Leg Right - 6: No Drift Motor Leg Left - 6: Drift Limb Ataxia - 7: Absent Sensory - 8: Normal Best Language - 9: No Aphasia Dysarthia - 10: Severe Dysarthia Extinction And Inattention - 11: 0 Score Total Score: 4
[2024-02-03 08:26] LABS: Basophils # 0.1 10^3/uL (0.0-0.1); Basophils % 0.6 %; Eosinophils % 0.2 %; Hematocrit 41.7 % (36-47); Lymphocytes # 0.8 10^3/uL (0.8-4.8); Lymphocytes % 8.9 %; Mean Corpuscular HGB Conc 33.8 g/dL (30-55); Mean Corpuscular Hemoglobin 29.7 pg (27-33); Monocytes # 0.9 10^3/uL (0.2-0.9); Monocytes % 10.6 %; Neutrophils # 6.72 10^3/uL (1.8-7.7); Neutrophils % 79.5 %; Nucleated Red Blood Cells % 0 %; Platelet Count 226 10^3/cmm (157-399); Red Blood Count 4.74 10^6/uL (3.85-5.65); Red Cell Distribution Width 13.2 % (12.1-15.1); White Blood Count 8.46 10^3/uL (3.29-11.43)
[2024-02-03] MEDS: sodium chloride 0.9% 500 ML IV (08:29)
[2024-02-03 08:35] LABS: Charge for UA Resulting for Rev
[2024-02-03] MEDS: acetaminophen 325 mg Tablet 650 MG PO (08:50)
[2024-02-03 08:56] LABS: Bilirubin Urine Negative (Negative); Blood Urine 1+ (Negative); Glucose Urine UA Negative (Normal); Ketones Urine Negative (Negative); Leukocyte Esterase Urine Negative (Negative); Nitrate Urine Negative (Negative); Protein Urine Negative (Negative); Specific Gravity, Urine 1.013 (1.005-1.030); Urine Appearance Clear (CLEAR); Urine Color Yellow (Yellow); pH Urine 6.5 (5-7)
[2024-02-03 08:59] LABS: Bacteria Urine None Seen /hpf; Hyaline Casts Urine 0.81 /lpf; Squamous Epithelial Cell Urine 0-5 /hpf (0-5); WBC Urine 0-5 /hpf (0-5)
[2024-02-03 08:59] LABS: Alanine Aminotransferase 23 U/L (0-33); Albumin Level 3.7 g/dL (3.5-5.2); Alkaline Phosphatase 75 U/L (35-105); Aspartate Amino Transferase 21 U/L (0-32); Blood Urea Nitrogen 10 mg/dL (8-23); Calcium 8.9 mg/dL (8.5-10.5); Carbon Dioxide 20 mmol/L (22-29); Glucose 111 mg/dL (65-115); Lipase 12 U/L (13-60); Magnesium 1.8 mg/dL (1.7-2.3); Thyroid Stimulating Hormone 1.74 uIU/mL (0.27-4.20); Total Bilirubin 0.8 mg/dL (0.15-1.2); Total Protein 6.7 g/dL (6.6-8.7)
--- NOTE | 2024-02-03 09:03 | ECG_ITS ---
[facility] Test Date: 2024-02-03 Pat Name: Kimberly Cooper Department: Room: Gender: Female [id number] Java Developer: : 1940 Requested By: José Miguel Mack Order Number: [id number] Itz MD: Zackery Armas M.D. Measurements Intervals [place] Rate: 90 P: 58 HI: 183 QRS: -8 QRSD: 91 T: 29 QT: 367 QTc: 451 Interpretive Statements SINUS RHYTHM Compared to ECG 07/09/2023 10:00:33 Incomplete right bundle-branch block no longer present Electronically Signed On 02-03-2024 13:31:42 CDT by Zackery Armas M.D. [email or web address] [email or web address] medical [email or web address] Inventionshighland district [id number]
[2024-02-03 09:16] LABS: Anion Gap 19.3 (5-19); Chloride 95 mmol/L (98-107); Osmolality Calculated 272 mOsm/kg (285-295); Potassium 3.3 mmol/L (3.5-5.1); Sodium 131 mmol/L (136-145)
[2024-02-03 09:29] LABS: SARS Covid-2 Antigen positive (Negative)
[2024-02-03 09:57] VITALS: BP 127/80; PULSE 81; TEMP 37.1; O2SAT 93
== END 2024-02-03 10:38 | disposition home or self-care (01) ==
PROVIDERS: Emergency Provider Emergency Medicine; Family Provider Family Medicine; PCP Family Medicine
DX: U07.1 COVID-19 (principal); Z79.82 Long term (current) use of aspirin; I10 Essential (primary) hypertension; F03.90 Unspecified dementia, unspecified severity, without behavioral disturbance, psychotic disturbance, mood disturbance, and anxiety
CPT/HCPCS: 36415; 70450; 71045; 80053; 81003; 81015; 83690; 83735; 84443; 85025; 85610; 87426; 93005; 99285; J7040

== ENCOUNTER 2024-06-08 08:12 | Observation (INO) | payer MEDICARE, SELFPAY ==
[2024-06-08] VITALS (13 sets, daily range): BP systolic 134–169; BP diastolic 66–97; PULSE 97–110; RESP 15–18; TEMP 36.1–37.3; O2SAT 93–96; BMI 30.1
--- NOTE | 2024-06-08 08:24 | PC.PHAR ---
patient is from [facility]. sent fax for them to send me the med list @8am
[2024-06-08 08:25] LABS: Glucose Point of Care 130 mg/dL (70-110)
--- NOTE | 2024-06-08 08:26 | ECG_ITS ---
[facility]: 2024-[facility]-08 Pat Name: Kimberly Cooper Department: Room: Gender: Female Key Punch Operator: : 1940 Requested By: Juwan Garcia Order Number: [id number] Itz MD: Jeannie Stevenson M.D. Measurements Intervals [place] Rate: 99 P: 64 ME: 193 QRS: 45 QRSD: 98 T: 49 QT: 372 QTc: 479 Interpretive Statements SINUS RHYTHM POSSIBLE INFERIOR MYOCARDIAL INFARCTION , PROBABLY OLD [30 ms Q WAVE IN II/aVF] Compared to ECG 02/03/2024 09:03:37 Myocardial infarct finding now present Electronically Signed On 06-08-2024 19:44:31 LANDSCAPING CREW LEADER by Jeannie Stevenson M.D. [id number]
--- NOTE | 2024-06-08 08:28 | CT_ITS ---
WS: [id number] CTA HEAD AND NECK TECHNIQUE: Contrast enhanced CTA of the head and neck with coronal and sagittal reformatted images an d maximum intensity projection (MIP) images. NASCET criteria utilized. CLINICAL INFORMATION: AMS COMPARISON: None. DLP: [id number] scans at [facility] use at least one of these dose optimization techniques: automated e xposure control; mA and/or kV adjustment per patient size (includes targeted exams where dose is matc hed to clinical indication); or iterative reconstruction. FINDINGS: RIGHT: RIGHT common carotid artery is patent. No significant RIGHT ICA stenosis. Mild atheromatous di sease RIGHT carotid bulb. No significant RIGHT ICA stenosis. RIGHT ICA is patent to the skull base. LEFT: LEFT common carotid artery is patent. No significant LEFT ICA stenosis. LEFT ICA is patent to t he skull base. Mild cavernous carotid calcification. INTRACRANIAL CTA: Codominant and patent vertebral arteries bilaterally. Proximal basilar artery is patent. Normal vas cularity to the MANAGEMENT MANAGER territory bilaterally. Distal vessels are patent. ICAs are patent at the skull ba se. Small RIGHT A1 segment. Normal vascularity to the MARISSA and proximal MCA territories bilaterally. Decreased asymmetric cortical flow involving the RIGHT posterior frontal and frontal lobes of indeter minate clinical significance. This can be followed up with MRI. No proximal flow-limiting stenosis. CT/CT angio headneck* [id number] IMPRESSION: 1. No significant cervical ICA stenosis. 2. No proximal flow-limiting intracranial stenosis. 3. Codominant and patent vertebral arteries bilaterally. 4. Asymmetric decreased cortical flow in the RIGHT frontal and posterior front al lobes of indeterminate clinical significance. This could followed up with MR I. Again no proximal flow-limiting stenosis. Notified Juwan Brooke DO at 06/08/2024 9:03 AM.
--- NOTE | 2024-06-08 08:28 | CT_ITS ---
WS: [id number] CT HEAD TECHNIQUE: Noncontrast CT of the head obtained from the skullbase to the vertex. CLINICAL INFORMATION: AMS COMPARISON: 02/03/2024 DLP: [address] scans at [facility] use at least one of these dose optimization techniques: automated e xposure control; mA and/or kV adjustment per patient size (includes targeted exams where dose is matc hed to clinical indication); or iterative reconstruction. FINDINGS: No evidence of intracranial hemorrhage or mass effect. Ventricular system and basal cisterns are dodd nt. Moderate small vessel changes with moderate parenchymal volume loss. No extra-axial fluid collect ions. No evidence of mass or mass effect. Vascular calcification. Stable encephalomalacia RIGHT anter ior temporal lobe. Paranasal sinuses and mastoid air cells are well aerated. Trace fluid LEFT maxillary sinus. CT/CT head thrombolytic [id number] IMPRESSION: 1. No evidence of intracranial hemorrhage or mass effect. 2. No acute intracranial findings. Notified Juwan Brooke DO at 06/08/2024 8:41 AM.
--- NOTE | 2024-06-08 08:31 | W.ED.NEUROSD ---
HPI - Neuro Symptoms/Deficit General: Chief Complaint: Neuro Symptoms/Deficit Stated Complaint: stroke like symptoms Time Seen by Provider: 06/08/24 08:15 History of Present Illness: 83-year-old female with a history of dementia is in assisted living at [place]. She normally is nonverbal now she has some left arm and leg weakness that was new this morning her last known well was last evening around 930. She presented here at 812. She is unable to give any history. I later was able to talk to her states that yesterday she seemed to be doing well was up walking nonverbal he is her primary caregiver at assisted living and they are able to manage with him providing most of her assistance. She has previously had DSA's in the past the left-sided weakness is new. Related Data Home Medications Medication Instructions Recorded Confirmed amlodipine 5 mg tablet 5 mg PO DAILY 07/09/23 06/08/24 cholecalciferol (vitamin D3) 25 25 mcg PO DAILY 07/09/23 06/08/24 mcg (1,000 unit) capsule (Vitamin D3) hydrochlorothiazide 25 mg tablet 25 mg PO DAILY 07/09/23 06/08/24 levothyroxine 75 mcg tablet 75 mcg PO DAILY 07/09/23 06/08/24 benzonatate 100 mg capsule 100 mg PO TID PRN Cough 06/08/24 06/08/24 cyclobenzaprine 5 mg tablet 5 mg PO TID 06/08/24 06/08/24 meloxicam 7.5 mg tablet 7.5 mg PO DAILY 06/08/24 06/08/24 valsartan 160 mg tablet 160 mg PO DAILY 06/08/24 06/08/24 Previous Rx's Medication Instructions Recorded aspirin 81 mg tablet,delayed 81 mg PO DAILY #90 tabs 07/10/23 release atorvastatin 40 mg tablet 40 mg PO BEDTIME #90 tabs 07/10/23 Allergies Allergy/AdvReac Type Severity Reaction Status Date / Time Sulfa (Sulfonamide Allergy Unknown Verified 02/03/24 08:15 Antibiotics) [facility] ED PFSH: Medical History CVA (cerebral vascular accident) Hypothyroidism Hypertension Dementia Social History Smoking and tobacco/nicotine status: never used tobacco/nicotine Alcohol intake: never NIH stroke score NIHSS: Level Of Consciousness - 1a: 0 Level Of Consciousness Questions - 1b: Both Correct Level Of Consciousness Commands - 1c: Both Correct Best Gaze - 2: Normal Visual Clements - 3: No Visual Loss Facial Palsy - 4: Normal Motor Arm Right - 5: No Drift Motor Arm Left - 5: Drift Motor Leg Right - 6: No Drift Motor Leg Left - 6: No Drift Limb Ataxia - 7: Present In One Limb Sensory - 8: Mild To Moderate Loss Best Language - 9: No Aphasia Dysarthia - 10: Normal Extinction And Inattention - 11: 0 Score: Total Score: 3 Physical Exam Const: GENERAL APPEARANCE: cooperative ORIENTATION/CONSCIOUSNESS: Yes awake HENMT: COMMON NORMALS: normocephalic, atraumatic and hearing grossly normal bilaterally HEAD & SCALP: normocephalic and atraumatic Resp: COMMON NORMALS: normal respiratory effort, No retractions, No use of accessory muscles and clear to auscultation bilaterally AUSCULTATION: clear to auscultation bilaterally Cardio: COMMON NORMALS: regular rate, regular rhythm and No murmurs present (Cardio) RATE: regular rate RHYTHM: regular rhythm GI: COMMON NORMALS: Soft to palpation and No hepatosplenomegaly present AUSCULTATION: Yes normoactive bowel sounds PALPATION: Yes Soft to palpation, No Tenderness to palpation present (GI), No Guarding due to palpation present (GI) and Yes No hepatosplenomegaly present Extremity: COMMON NORMALS: normal to inspection, capillary refill normal, no clubbing, cyanosis or edema, no calf tenderness and no pedal edema Skin: COMMON NORMALS: no rashes or lesions noted GENERAL SKIN EXAM: no rashes or lesions noted Course Vital Signs: Vital signs: Vital Signs Temperature 97.0 F L 06/08/24 08:30 Pulse Rate 108 H 06/08/24 12:15 Respiratory Rate 17 06/08/24 12:15 Blood Pressure 134/84 06/08/24 12:15 Pulse Oximetry 94 06/08/24 12:15 Oxygen Delivery Me thod Room Air 06/08/24 11:15 MDM - Neuro Symptoms/Deficit Medical Decision Making Patient comes in as a stroke alert she is outside the window for TNKase. She is difficult score because of underlying dementia accounting for her known dementia issues of being nonverbal I score her at a 3. Initial CT shows encephalomalacia and evidence of previous strokes but no active bleed. She is not on any anticoagulants. CTA is pending reviewed the case with Dr. Maurer who is on-call for stroke. She concurs the patient is not a candidate for TNKase she does not feel a candidate patient would be a candidate for embolectomy either. CTA head and neck is pending anticipate admission for acute CVA. Medical Records I reviewed the patient's medical records. Lab Data I reviewed the patient's lab results. 06/08/24 09:01 06/08/24 09:[address] 06/08/24 08:28 IMPRESSION: 1. No evidence of intracranial hemorrhage or mass effect. 2. No acute intracranial findings. Notified Juwan Brooke DO at 06/08/2024 8:41 AM. Head/Neck CTA 06/08/24 08:28 IMPRESSION: 1. No significant cervical ICA stenosis. 2. No proximal flow-limiting intracranial stenosis. 3. Codominant and patent vertebral arteries bilaterally. 4. Asymmetric decreased cortical flow in the RIGHT frontal and posterior frontal lobes of indeterminate clinical significance. This could followed up with MRI. Again no proximal flow-limiting stenosis. Notified Juwan Brooke DO at 06/08/2024 9:03 AM. Chest X-Ray 06/08/24 10:14 IMPRESSION: No acute pathology or significant interval change given technique. Laboratory Results WBC 6.85 10^3/uL (3.29-11.43) 06/08/24 09:01 RBC 5.15 10^6/uL (3.85-5.65) 06/08/24 09:01 Hgb 14.90 g/dL (11.27-16.99) 06/08/24 09:01 Hct 45.9 % (36-47) 06/08/24 09:01 MCV 89.1 fl (85-98) 06/08/24 09:01 MCH 28.9 pg (27-33) 06/08/24 09:01 MCHC 32.5 g/dL (30-55) 06/08/24 09:01 RDW 12.4 % (12.1-15.1) 06/08/24 09:01 Plt Count 269 10^3/cmm (157-399) 06/08/24 09:01 MPV 9.7 fL (7.4-10.4) 06/08/24 09:01 Neut % (Auto) 78.8 % 06/08/24 09:01 Lymph % (Auto) 14.7 % 06/08/24 09:01 [place] % (Auto) 4.8 % 06/08/24 09:01 Eos % (Auto) 1.0 % 06/08/24 09:01 Baso % (Auto) 0.4 % 06/08/24 09:01 Neut # (Auto) 5.39 10^3/uL (1.8-7.7) 06/08/24 09:01 Lymph # (Auto) 1.0 10^3/uL (0.8-4.8) 06/08/24 09:01 [place] # (Auto) 0.3 10^3/uL (0.2-0.9) 06/08/24 09:01 Eos # (Auto) 0.1 10^3/uL (0.0-0.8) 06/08/24 09:01 Baso # (Auto) 0.0 10^3/uL (0.0-0.1) 06/08/24 09:01 Nucleated RBC % (auto) 0 % 06/08/24 09:01 Nucleated RBCs # 0.0 /100WBC 06/08/24 09:01 PT 13.60 SECONDS (12.1-14.9) 06/08/24 09:01 INR 1.01 (0.8-1.2) 06/08/24 09:01 APTT 30.5 SECONDS (23.9-36.7) 06/08/24 09:01 Sodium 132 mmol/L (136-145) L 06/08/24 09:01 Potassium 3.3 mmol/L (3.5-5.1) L 06/08/24 09:01 Chloride 98 mmol/L (98-107) 06/08/24 09:01 Carbon Dioxide 24 mmol/L (22-29) 06/08/24 09:01 Anion Gap 13.3 (5-19) 06/08/24 09:01 BUN 14 mg/dL (8-23) 06/08/24 09:01 Creatinine 0.5 mg/dL (0.5-0.9) 06/08/24 09:01 GFR Calculation Not Reportable 06/08/24 09:01 Glucose 126 mg/dL (65-115) H 06/08/24 09:01 POC Glucose 130 mg/dL (70-110) H 06/08/24 08:17 Calculated Osmolality 276 mOsm/kg (285-295) L 06/08/24 09:01 Calcium 9.5 mg/dL (8.5-10.5) 06/08/24 09:01 Total Bilirubin 0.6 mg/dL (0.15-1.2) 06/08/24 09:01 AST 20 U/L (0-32) 06/08/24 09:01 ALT 25 U/L (0-33) 06/08/24 09:01 Alkaline Phosphatase 91 U/L (35-105) 06/08/24 09:01 Total Protein 7.3 g/dL (6.6-8.7) 06/08/24 09:01 Albumin 3.9 g/dL (3.5-5.2) 06/08/24 09:01 Globulin 3.4 g/dL (1.3-4.6) 06/08/24 09:01 Urine Color Yellow (Yellow) 06/08/24 08:43 Urine Appearance Clear (CLEAR) 06/08/24 08:43 Urine pH 7.5 (5-7) 06/08/24 08:43 Ur Specific [place] 1.030 (1.005-1.030) 06/08/24 08:43 Urine Protein Negative (Negative) 06/08/24 08:43 Urine Glucose (UA) Negative (Normal) 06/08/24 08:43 Urine Ketones Negative (Negative) 06/08/24 08:43 Urine Blood Negative (Negative) 06/08/24 08:43 Urine Nitrate Negative (Negative) 06/08/24 08:43 Urine Bilirubin Negative (Negative) 06/08/24 08:43 Urine Urobilinogen 0.2 mg/dL (Negative) 06/08/24 08:43 Ur Leukocyte Esterase Negative (Negative) 06/08/24 08:43 Urine RBC 0-2 /hpf (0-2) 06/08/24 08:43 Urine WBC 0-5 /hpf (0-5) 06/08/24 08:43 Ur Squamous Epith Cells 0-5 /hpf (0-5) 06/08/24 08:43 Amorphous Sediment Not Reportable 06/08/24 08:43 Urine Bacteria None seen /hpf (NONE) 06/08/24 08:43 Hyaline Casts 2.05 /lpf 06/08/24 08:43 Urine Opiates Screen Negative ng/mL (Negative) 06/08/24 08:43 Ur Barbiturates Screen Negative ng/mL (Negative) 06/08/24 08:43 Ur Phencyclidine Scrn Negative ng/mL (Negative) 06/08/24 08:43 Ur Amphetamines Screen Negative ng/mL (Negative) 06/08/24 08:43 U Benzodiazepines Scrn Negative ng/mL (Negative) 06/08/24 08:43 Urine Cocaine Screen Negative ng/mL (Negative) 06/08/24 08:43 U Marijuana (THC) Screen Negative ng/mL (Negative) 06/08/24 08:43 All radiology interpretation(s) finalized by discharge Discharge Plan Discharge Admit Provider: Arnol Springer Condition: Stable Coding Level of Care Code ED Bag Loader for Toña Brady
[2024-06-08] MEDS: iohexol 350 mg/mL 500 mL Btl (per mL) IV (08:34)
[2024-06-08 08:58] LABS: Bilirubin Urine Negative (Negative); Blood Urine Negative (Negative); Glucose Urine UA Negative (Normal); Ketones Urine Negative (Negative); Leukocyte Esterase Urine Negative (Negative); Nitrate Urine Negative (Negative); Protein Urine Negative (Negative); Urine Appearance Clear (CLEAR); Urine Color Yellow (Yellow); Urobilinogen Urine 0.2 mg/dL (Negative); pH Urine 7.5 (5-7)
[2024-06-08 09:03] LABS: Add Urine Microscopic? YES; Bacteria Urine None Seen /hpf; Hyaline Casts Urine 2.05 /lpf; RBC Urine 0-2 /hpf (0-2); Squamous Epithelial Cell Urine 0-5 /hpf (0-5); WBC Urine 0-5 /hpf (0-5)
[2024-06-08 09:05] LABS: Amphetamines Screen Urine Negative (Negative); Barbiturates Screen Urine Negative (Negative); Benzodiazepines Screen Urine Negative (Negative); Cocaine Screen Urine Negative (Negative); Opiate Screen Urine Negative (Negative); PCP Screen Urine Negative (Negative); THC Screen Urine Negative (Negative)
[2024-06-08 09:05] LABS: Basophils % 0.4 %; Eosinophils # 0.1 10^3/uL (0.0-0.8); Hematocrit 45.9 % (36-47); Lymphocytes % 14.7 %; Mean Corpuscular HGB Conc 32.5 g/dL (30-55); Mean Corpuscular Hemoglobin 28.9 pg (27-33); Mean Corpuscular Volume 89.1 fl (85-98); Mean Platelet Volume 9.7 fL (7.4-10.4); Monocytes # 0.3 10^3/uL (0.2-0.9); Monocytes % 4.8 %; Neutrophils # 5.39 10^3/uL (1.8-7.7); Neutrophils % 78.8 %; Nucleated Red Blood Cells % 0 %; Platelet Count 269 10^3/cmm (157-399); Red Blood Count 5.15 10^6/uL (3.85-5.65); Red Cell Distribution Width 12.4 % (12.1-15.1); White Blood Count 6.85 10^3/uL (3.29-11.43)
[2024-06-08 09:18] LABS: INR 1.01 (0.8-1.2)
[2024-06-08 09:19] LABS: Partial Thromboplastin Time 30.5 SECONDS (23.9-36.7)
[2024-06-08 09:22] LABS: Alanine Aminotransferase 25 U/L (0-33); Albumin Level 3.9 g/dL (3.5-5.2); Alkaline Phosphatase 91 U/L (35-105); Anion Gap 13.3 (5-19); Aspartate Amino Transferase 20 U/L (0-32); Blood Urea Nitrogen 14 mg/dL (8-23); Calcium 9.5 mg/dL (8.5-10.5); Carbon Dioxide 24 mmol/L (22-29); Chloride 98 mmol/L (98-107); Creatinine Clr Calc Pharmacy 56.8488; Globulin 3.4 g/dL (1.3-4.6); Glucose 126 mg/dL (65-115); Osmolality Calculated 276 mOsm/kg (285-295); Potassium 3.3 mmol/L (3.5-5.1); Sodium 132 mmol/L (136-145); Total Bilirubin 0.6 mg/dL (0.15-1.2); Total Protein 7.3 g/dL (6.6-8.7)
--- NOTE | 2024-06-08 10:14 | XRR_ITS ---
PROCEDURE INFORMATION: Exam: XR Chest Exam date and time: 06/08/2024 10:46 AM Age: 83 years old Clinical indication: Condition or disease; Other: CVA TECHNIQUE: Imaging protocol: Radiologic exam of the chest. Views: 1 view. COMPARISON: CR XR chest 1V portable [id number] 02/03/2024 8:30 AM FINDINGS: Lungs: Suboptimal pulmonary expansion with associated accentuation of bronchovascular markings. Mild left basilar scar versus atelectasis. No significant acute pulmonary pathology given technique. Pleural spaces: No pleural effusion. Heart/Mediastinum: Cardiomediastinal contours unremarkable given technique. Bones/joints: No significant pathology. Organs: Residual contrast in urinary collecting system from prior CT. XR/XR chest 1V portable [id number] IMPRESSION: No acute pathology or significant interval change given technique.
--- NOTE | 2024-06-08 11:06 | PM.HP ---
Providers/Chief Complaint Admitting Physician: Arnol Cardenas Primary Care Provider: Sumit Ramirez DO Chief Complaint: stroke like symptoms History of Present Illness Kimberly Cooper is a 83 year old female presents from [facility] living with worsening balance, especially on the left side. She has had a previous right hemispheric CVA causing left hemiparesis and has had less and less movement of her left upper extremity for a while. No recent infection. Was normal yesterday. Increased deficit was noted this morning, upon awakening. Stroke alert was called. Was deemed not to be a candidate for TNKase. No thrombus seen on CTA. Patient's baseline is left upper extremity weakness, difficult to understand speech, can follow some directions. Tries to help feed herself. Needs significant direction. Ambulates on her own usually. Review of Systems General: Reports: 10 or more systems reviewed and unremarkable except in HPI and below Medications/Allergies Home Medications Medication Instructions Recorded Confirmed Last Taken Type amlodipine 5 mg tablet 5 mg PO DAILY 07/09/23 06/08/24 06/07/24 History cholecalciferol (vitamin D3) 25 25 mcg PO DAILY 07/09/23 06/08/24 Unknown History mcg (1,000 unit) capsule (Vitamin D3) hydrochlorothiazide 25 mg tablet 25 mg PO DAILY 07/09/23 06/08/24 06/07/24 History levothyroxine 75 mcg tablet 75 mcg PO DAILY 07/09/23 06/08/24 06/07/24 History aspirin 81 mg tablet,delayed 81 mg PO DAILY #90 tabs 07/10/23 06/08/24 06/07/24 Rx release atorvastatin 40 mg tablet 40 mg PO BEDTIME #90 tabs 07/10/23 06/08/24 06/07/24 Rx benzonatate 100 mg capsule 100 mg PO TID PRN Cough 06/08/24 06/08/24 Unknown History cyclobenzaprine 5 mg tablet 5 mg PO TID 06/08/24 06/08/24 Unknown History meloxicam 7.5 mg tablet 7.5 mg PO DAILY 06/08/24 06/08/24 Unknown History valsartan 160 mg tablet 160 mg PO DAILY 06/08/24 06/08/24 Unknown History Allergies Allergy/AdvReac Type Severity Reaction Status Date / Time Sulfa (Sulfonamide Allergy Unknown Verified 02/03/24 08:15 Antibiotics) PFSH Acute PFSH: Medical History (Updated 06/08/24 @ 11:09 by Arnol Springer MD) CVA (cerebral vascular accident) Hypothyroidism Hypertension Dementia Social History (Updated 06/08/24 @ 11:09 by Arnol Springer MD) Smoking and tobacco/nicotine status: never used tobacco/nicotine Alcohol intake: never Vitals/I&O/Wt Last Vital Signs Temp 97.0 F L 06/08/24 08:30 Pulse 107 H 06/08/24 10:00 Resp 15 06/08/24 08:30 BP 147/80 06/08/24 10:00 Pulse Ox 96 06/08/24 10:00 O2 Del Method Room Air 06/08/24 10:00 Weight last 48 hrs Weight 67.585 kg Physical Exam Narrative: General exam is a white female, who tries to communicate. Some of her words are understandable. HEENT: Atraumatic normocephalic. Oropharynx clear. Some left facial droop is noted Neck is supple Cardiovascular regular rate and rhythm, no murmur, borderline tachycardic Lungs clear Abdomen is soft nontender exams deferred Extremities no cyanosis clubbing. Left upper extremity with a contracture. Skin no rash Neuro at least left upper extremity paresis. Difficult to cooperate with exam. See NIHSS score by emergency department. Data 06/08/24 09:01 06/08/24 09:01 Other Labs: LFTs are normal Urinalysis negative Urine drug screen negative CTA head and neck no flow-limiting stenosis. Asymmetric flow is noted right frontal and posterior frontal lobes of undetermined clinical significance Head CT no bleed. Encephalomalacia unchanged Chest x-ray ordered which I reviewed demonstrates no infiltrate. Left hemidiaphragm a little elevated EKG which I reviewed demonstrates sinus rhythm, normal axis, small Q waves inferiorly A&P Assessment and plan (1) CVA (cerebral vascular accident): Patient presents with symptoms concerning for acute CVA Initiate aspirin and Plavix starting tomorrow. From my understanding she got aspirin already this morning. Increase statin Echocardiogram Therapy consultation Hydration Permissive hypertension Telemetry Appropriate for observation status Discharge planning consult (2) Hypertension: Permissive hypertension. Hold medications currently. Riyad after 24 hours slowly Qualifiers: Hypertension type: primary hypertension Qualified Code(s): I10 - Essential (primary) hypertension (3) Dementia: Patient with underlying dementia, making NIHSS scoring difficult Qualifiers: Alzheimer's disease onset: late onset Dementia behavioral or psychological symptom: without behavioral, psychotic, or mood disturbance or anxiety Dementia severity: moderate Dementia type: Alzheimer's Qualified Code(s): G30.1 - Alzheimer's disease with late onset; F02.B0 - Dementia in other diseases classified elsewhere, moderate, without behavioral disturbance, psychotic disturbance, mood disturbance, and anxiety Plan Other medical problems as outlined in past medical history Allow natural Lovenox for DVT prophylaxis Attestations Medical Necessity Statement*: Will need less than 2 midnight stay for evaluation and treatment of CVA Coding Level of Care Code Acute Code for [facility] Fwd Diagnoses CVA (cerebral vascular accident) I63.9 Primary hypertension I10 Hypertension type: primary hypertension Moderate late onset Alzheimer's dementia without behavioral disturbance, psychotic disturbance, mood disturbance, or anxiety G30.1; F02.B0 Alzheimer's disease onset: late onset Dementia behavioral or psychological symptom: without behavioral, psychotic, or mood disturbance or anxiety Dementia severity: moderate Dementia type: Alzheimer's
[2024-06-08] MEDS: sodium chloride 0.9% 1,000 ML 75 ML IV (11:31)
--- NOTE | 2024-06-08 12:51 | USCV_ITS ---
Kimberly Cooper Age: 83 Gender: F : 1940 Exam Date: 06/08/2024 15:12 Ordering Phys: Arnol Springer MD Technologist: Jamie Merino Exam Location: [facility] – [place] Indication: cva BP: 162 / 72 HR: 97 Rhythm: Sinus Technical Quality: Adequate MEASUREMENTS (Male / Female) Normal Values 2D ECHO LV Diastolic Diameter PLAX 3.1 cm 4.2 - 5.9 / 3.9 - 5.3 cm IVS Diastolic Thickness 1.3 cm 0.6 - 1.0 / 0.6 - 0.9 cm IVS Systolic Thickness 1.4 cm LVPW Diastolic Thickness 1.7 cm 0.6 - 1.0 / 0.6 - 0.9 cm LVPW Systolic Thickness 1.5 cm LVOT Diameter 2.0 cm LV Ejection Fraction 2D Teich 65.9 % LV Ejection Fraction MOD 4C 77.0 % LV Ejection Fraction MOD 2C 66.8 % LV Ejection Fraction 2C AL 68.8 % LA Diameter 3.1 cm RA Systolic Volume 4C AL 14.7 ml RA Systolic Volume 4C MOD 14.7 ml LA Sys Volume AL 21.7 cm cubed LA Sys Volume Index AL 12.7 cm cubed/m squared Aorta at Sinotubular Diameter 2.1 cm IVC Diameter 1.5 cm M-MODE LA Ao Ratio MM 1.4 AV Cusp Separation MM 1.7 cm DOPPLER AV Peak Velocity 182.0 cm/s LVOT Peak Velocity 104.0 cm/s AV Area Cont Eq vti 1.5 cm squared AV Area Cont Eq pk 1.8 cm squared MV Peak Velocity 161.0 cm/s MV Area PHT 6.1 cm squared Mitral E to A Ratio 0.5 TR Peak Velocity 312.0 cm/s TR Peak Gradient 38.9 mmHg TR Mean Velocity 243.0 cm/s TR Mean Gradient 25.2 mmHg TR Velocity Time Integral 71.3 cm PV Peak Velocity 90.7 cm/s RV Ejection Time 0.2 s FINDINGS Left Ventricle Left ventricle is normal in size. LV systolic function is normal with EF of 60 to 65%. No regional wall motion abnormalities are seen. Moderate left ventricular hypertrophy. Grade 1 diastolic dysfunction. Right Ventricle Normal in size and function Right Atrium Normal in size Left Atrium Normal in size Mitral Valve Structurally normal mitral valve. Trace mitral regurgitation. Aortic Valve Structurally normal aortic valve. Mild aortic stenosis with aortic valve area of 8mmHg with aortic valve area of 1.53 cm squared. Mild to moderate aortic regurgitation. Tricuspid Valve Mild tricuspid regurgitation. RVSP is 35-40mmHg. This is consistent with mild pulmonary hypertension. Pulmonic Valve Not well visualized Pericardium Normal Aorta Normal in size IVC Not well visualized CONCLUSIONS LV systolic function is normal with EF of 60 to 65%. Moderate left ventricular hypertrophy Grade 1 diastolic dysfunction. Trace mitral regurgitation Mild aortic stenosis. Mild to moderate aortic regurgitation Mild tricuspid regurgitation Mild pulmonary hypertension Zackery Armas MD (Electronically Signed) Final Date: 09 June 2024 11:08 S
[2024-06-08 17:20] LABS: Glucose Point of Care 117 mg/dL (70-110)
[2024-06-08] MEDS: atorvastatin 40 mg Tablet 80 MG PO (20:31)
[2024-06-09] MEDS: sodium chloride 0.9% 1,000 ML 75 ML IV ×2 (00:34→14:45)
[2024-06-09 03:52] VITALS: BP 149/68; PULSE 94; RESP 16; TEMP 37; O2SAT 95
[2024-06-09 06:01] LABS: Basophils % 0.5 %; Eosinophils # 0.1 10^3/uL (0.0-0.8); Eosinophils % 1.3 %; Hematocrit 40.6 % (36-47); Lymphocytes % 22.6 %; Mean Corpuscular Hemoglobin 29.4 pg (27-33); Mean Corpuscular Volume 86.6 fl (85-98); Mean Platelet Volume 10.1 fL (7.4-10.4); Monocytes # 0.7 10^3/uL (0.2-0.9); Monocytes % 8.2 %; Neutrophils # 5.89 10^3/uL (1.8-7.7); Neutrophils % 67.3 %; Nucleated Red Blood Cells % 0 %; Platelet Count 305 10^3/cmm (157-399); Red Blood Count 4.69 10^6/uL (3.85-5.65); Red Cell Distribution Width 12.7 % (12.1-15.1); White Blood Count 8.75 10^3/uL (3.29-11.43)
[2024-06-09 06:17] LABS: Estmated Average Glucose 120; Hemoglobin A1C 5.8 % (4.0-6.0)
[2024-06-09 06:21] LABS: Blood Urea Nitrogen 11 mg/dL (8-23); Calcium 9.3 mg/dL (8.5-10.5); Carbon Dioxide 26 mmol/L (22-29); Chloride 101 mmol/L (98-107); Chol HDL Ratio 2.16 mg/dL (0.0-4.40); Cholesterol 110 mg/dL (0-200); Creatinine Clr Calc Pharmacy 57.0776; Glucose 107 mg/dL (65-115); HDL Cholesterol 51 mg/dL (60-100); LDL Cholesterol Calculated 46 mg/dL (50-129); Osmolality Calculated 282 mOsm/kg (285-295); Sodium 136 mmol/L (136-145); Triglycerides 67 mg/dL (0-150)
[2024-06-09] MEDS: potassium chloride ER 20 mEq Tablet 40 MEQ PO (06:32)
[2024-06-09 08:00] VITALS: BP 156/86; PULSE 98; RESP 14; TEMP 36.5; O2SAT 94
[2024-06-09] MEDS: clopidogrel 75 mg Tablet PO (09:00)
[2024-06-09] MEDS: levothyroxine 75 mcg Tablet PO (09:00)
[2024-06-09] MEDS: aspirin 81 mg EC Tablet PO (09:00)
[2024-06-09 12:00] VITALS: BP 154/64; PULSE 95; RESP 16; TEMP 36.8; O2SAT 98
[2024-06-09 15:59] VITALS: BP 146/84; PULSE 100; RESP 18; TEMP 36.6; O2SAT 94
[2024-06-09 17:19] VITALS: BP 146/84; PULSE 100; O2SAT 94
--- NOTE | 2024-06-09 21:29 | PM.DCS ---
Discharge Providers Date of Admission: 06/08/24 12:18 Date of Discharge: June 09, 2024 Attending Provider at Admission: Arnol Springer MD Attending Provider at Discharge: Cl Tyler Primary Care Provider: Sumit Ramirez DO Diagnoses at Discharge Discharge Diagnosis (1) CVA (cerebral vascular accident): Status: Acute (2) Hypertension: Status: Chronic Qualifiers: Hypertension type: primary hypertension Qualified Code(s): I10 - Essential (primary) hypertension (3) Dementia: Status: Chronic Qualifiers: Alzheimer's disease onset: late onset Dementia behavioral or psychological symptom: without behavioral, psychotic, or mood disturbance or anxiety Dementia severity: moderate Dementia type: Alzheimer's Qualified Code(s): G30.1 - Alzheimer's disease with late onset; F02.B0 - Dementia in other diseases classified elsewhere, moderate, without behavioral disturbance, psychotic disturbance, mood disturbance, and anxiety Reason for Visit Reason for Visit: stroke like symptoms Hospital Course Hospital Course 83-year-old lady with dementia, prior CVA, nonverbal at baseline, chronic left upper extremity weakness, was admitted after finding of decreased balance, worsened left upper extremity weakness, with possible CVA, CT of the head and CTA unremarkable, without evidence of new stroke on CT, without flow-limiting ICA or vertebral stenosis, incidentally noted a symmetric decreased cortical flow in her right frontal and posterior frontal lobes of indeterminate clinical significance. She was continued on aspirin, statin, Plavix was added. Statin was intensified. She was doing better this morning. Alert, interactive to her baseline extent. Not much improvement in strength of left upper extremity. Did work with therapy and was able to get up mostly with standby. As such she was able to return to assisted living with requested further follow-up with primary provider and neurology. Mildly hyponatremic at presentation, this improved with regular diet. Discussed with her and son. Physical Exam Narrative: Accompanied by and son. Const: COMMON NORMALS: alert GENERAL APPEARANCE: cooperative ORIENTATION/CONSCIOUSNESS: Yes awake HENMT: COMMON NORMALS: oropharynx normal Neck/C-Spine: COMMON NORMALS: no JVD Resp: COMMON NORMALS: normal respiratory effort and clear to auscultation bilaterally AUSCULTATION: clear to auscultation bilaterally Cardio: COMMON NORMALS: no JVD, regular rhythm, S1 normal heart sound present, S2 normal heart sound present and No murmurs present (Cardio) RHYTHM: regular rhythm HEART SOUNDS: S1 normal heart sound present and S2 normal heart sound present GI: COMMON NORMALS: Normal to inspection, nondistended, normoactive bowel sounds present, Soft to palpation and non-tender PALPATION: Yes Soft to palpation Extremity: COMMON NORMALS: no joint enlargement and no pedal edema NARRATIVE EXTREMITY EXAM: Weak left upper extremity, some effort against gravity. Neuro: SENSORIUM/ORIENTATION: Yes alert OTHER: She is awake, following some directions, although difficulties with communication and does require some support and repeat directions to participate. One-time gave one-word answer confirming decreased left side sensation. Noted left-sided facial droop. Able to track horizontally. Left upper extremity with some effort against gravity, no drift of right upper extremity. Does not appear to have drift of either lower extremity. Unable to perform FNF on the left, no difficulty on the right. Skin: COMMON NORMALS: no rashes or lesions noted GENERAL SKIN EXAM: no rashes or lesions noted Discharge Data Studies Completed and Pending Completed Studies During Hospitalization Category Date Time Status CT angio headneck* 52942/21590 Stat Cat Scan 06/08/24 08:[address] head thrombolytic 29132 Stat Cat Scan 06/08/24 08:28 Completed XR chest 1V portable [id number] Stat Exams 06/08/24 10:14 Completed CV. echo complete* [id number] Routine Ultrasound 06/08/24 12:51 Completed Radiology Impressions Head CT 06/08/24 08:28 IMPRESSION: 1. No evidence of intracranial hemorrhage or mass effect. 2. No acute intracranial findings. Notified Juwan Brooke DO at 06/08/2024 8:41 AM. Head/Neck CTA 06/08/24 08:28 IMPRESSION: 1. No significant cervical ICA stenosis. 2. No proximal flow-limiting intracranial stenosis. 3. Codominant and patent vertebral arteries bilaterally. 4. Asymmetric decreased cortical flow in the RIGHT frontal and posterior frontal lobes of indeterminate clinical significance. This could followed up with MRI. Again no proximal flow-limiting stenosis. Notified Juwan Brooke DO at 06/08/2024 9:03 AM. Chest X-Ray 06/08/24 10:14 IMPRESSION: No acute pathology or significant interval change given technique. Laboratory Results WBC 8.75 10^3/uL (3.29-11.43) 06/09/24 05:12 RBC 4.69 10^6/uL (3.85-5.65) 06/09/24 05:12 Hgb 13.80 g/dL (11.27-16.99) 06/09/24 05:12 Hct 40.6 % (36-47) 06/09/24 05:12 MCV 86.6 fl (85-98) 06/09/24 05:12 MCH 29.4 pg (27-33) 06/09/24 05:12 MCHC 34.0 g/dL (30-55) 06/09/24 05:12 RDW 12.7 % (12.1-15.1) 06/09/24 05:12 Plt Count 305 10^3/cmm (157-399) 06/09/24 05:12 MPV 10.1 fL (7.4-10.4) 06/09/24 05:12 Neut % (Auto) 67.3 % 06/09/24 05:12 Lymph % (Auto) 22.6 % 06/09/24 05:12 Jerome % (Auto) 8.2 % 06/09/24 05:12 Eos % (Auto) 1.3 % 06/09/24 05:12 Baso % (Auto) 0.5 % 06/09/24 05:12 Neut # (Auto) 5.89 10^3/uL (1.8-7.7) 06/09/24 05:12 Lymph # (Auto) 2.0 10^3/uL (0.8-4.8) 06/09/24 05:12 Jerome # (Auto) 0.7 10^3/uL (0.2-0.9) 06/09/24 05:12 Eos # (Auto) 0.1 10^3/uL (0.0-0.8) 06/09/24 05:12 Baso # (Auto) 0.0 10^3/uL (0.0-0.1) 06/09/24 05:12 Nucleated RBC % (auto) 0 % 06/09/24 05:12 Nucleated RBCs # 0.0 /100WBC 06/09/24 05:12 PT 13.60 SECONDS (12.1-14.9) 06/08/24 09:01 INR 1.01 (0.8-1.2) 06/08/24 09:01 APTT 30.5 SECONDS (23.9-36.7) 06/08/24 09:01 Sodium 136 mmol/L (136-145) 06/09/24 05:12 Potassium 3.0 mmol/L (3.5-5.1) L 06/09/24 05:12 Chloride 101 mmol/L (98-107) 06/09/24 05:12 Carbon Dioxide 26 mmol/L (22-29) 06/09/24 05:12 Anion Gap 12.0 (5-19) 06/09/24 05:12 BUN 11 mg/dL (8-23) 06/09/24 05:12 Creatinine 0.4 mg/dL (0.5-0.9) L 06/09/24 05:12 GFR Calculation Not Reportable 06/09/24 05:12 Glucose 107 mg/dL (65-115) 06/09/24 05:12 POC Glucose 117 mg/dL (70-110) H 06/08/24 17:15 Estimat Average Glucose 120 06/09/24 05:12 Hemoglobin A1c 5.8 % (4.0-6.0) 06/09/24 05:12 Calculated Osmolality 282 mOsm/kg (285-295) L 06/09/24 05:12 Calcium 9.3 mg/dL (8.5-10.5) 06/09/24 05:12 Total Bilirubin 0.6 mg/dL (0.15-1.2) 06/08/24 09:01 AST 20 U/L (0-32) 06/08/24 09:01 ALT 25 U/L (0-33) 06/08/24 09:01 Alkaline Phosphatase 91 U/L (35-105) 06/08/24 09:01 Total Protein 7.3 g/dL (6.6-8.7) 06/08/24 09:01 Albumin 3.9 g/dL (3.5-5.2) 06/08/24 09:01 Globulin 3.4 g/dL (1.3-4.6) 06/08/24 09:01 Triglycerides 67 mg/dL (0-150) 06/09/24 05:12 Cholesterol 110 mg/dL (0-200) 06/09/24 05:12 LDL Cholesterol, Calc 46 mg/dL (50-129) L 06/09/24 05:12 HDL Cholesterol 51 mg/dL (60-100) L 06/09/24 05:12 LDL/HDL Ratio 0.90 RATIO (0.00-3.22) 06/09/24 05:12 Cholesterol/HDL Ratio 2.16 mg/dL (0.0-4.40) 06/09/24 05:12 Urine Color Yellow (Yellow) 06/08/24 08:43 Urine Appearance Clear (CLEAR) 06/08/24 08:43 Urine pH 7.5 (5-7) 06/08/24 08:43 Ur Specific [place] 1.030 (1.005-1.030) 06/08/24 08:43 Urine Protein Negative (Negative) 06/08/24 08:43 Urine Glucose (UA) Negative (Normal) 06/08/24 08:43 Urine Ketones Negative (Negative) 06/08/24 08:43 Urine Blood Negative (Negative) 06/08/24 08:43 Urine Nitrate Negative (Negative) 06/08/24 08:43 Urine Bilirubin Negative (Negative) 06/08/24 08:43 Urine Urobilinogen 0.2 mg/dL (Negative) 06/08/24 08:43 Ur Leukocyte Esterase Negative (Negative) 06/08/24 08:43 Urine RBC 0-2 /hpf (0-2) 06/08/24 08:43 Urine WBC 0-5 /hpf (0-5) 06/08/24 08:43 Ur Squamous Epith Cells 0-5 /hpf (0-5) 06/08/24 08:43 Amorphous Sediment Not Reportable 06/08/24 08:43 Urine Bacteria None seen /hpf (NONE) 06/08/24 08:43 Hyaline Casts 2.05 /lpf 06/08/24 08:43 Urine Opiates Screen Negative ng/mL (Negative) 06/08/24 08:43 Ur Barbiturates Screen Negative ng/mL (Negative) 06/08/24 08:43 Ur Phencyclidine Scrn Negative ng/mL (Negative) 06/08/24 08:43 Ur Amphetamines Screen Negative ng/mL (Negative) 06/08/24 08:43 U Benzodiazepines Scrn Negative ng/mL (Negative) 06/08/24 08:43 Urine Cocaine Screen Negative ng/mL (Negative) 06/08/24 08:43 U Marijuana (THC) Screen Negative ng/mL (Negative) 06/08/24 08:43 Vitals Last Vital Signs Temp 98 F 06/09/24 15:59 Pulse 100 06/09/24 17:19 Resp 18 06/09/24 15:59 BP 146/84 06/09/24 17:19 Pulse Ox 94 06/09/24 17:19 O2 Del Method Room Air 06/09/24 15:59 Discharge Plan Discharge Patient Disposition: Home Condition: Stable Prescriptions: New clopidogrel 75 mg Tablet 75 mg PO DAILY Qty: 21 0RF Continued amlodipine 5 mg tablet 5 mg PO DAILY levothyroxine 75 mcg tablet 75 mcg PO DAILY hydrochlorothiazide 25 mg tablet 25 mg PO DAILY cholecalciferol (vitamin D3) [Vitamin D3] 25 mcg (1,000 unit) Capsule 25 mcg PO DAILY aspirin 81 mg Tablet,Delayed Release (Dr/Ec) 81 mg PO DAILY Qty: 90 0RF benzonatate 100 mg Capsule 100 mg PO TID PRN (Reason: Cough) valsartan 160 mg tablet 160 mg PO DAILY cyclobenzaprine 5 mg tablet 5 mg PO TID Changed atorvastatin 40 mg Tablet 80 mg PO BEDTIME Qty: 90 0RF Discontinued meloxicam 7.5 mg tablet 7.5 mg PO DAILY Discharge Orders: Discharge Order (Routine); Ordered 06/09/24 Ordered By: Cl Tyler Referrals: [facility] [Provider Group] - 7-10 days ( We have notified your physician's clinic of the need for a follow-up appointment to be scheduled. If you have not heard from them within the next 2 business days, please call them directly. ) Sumit Ramirez, [Primary Care Provider] - 4-7 days (We have notified your physician's clinic of the need for a follow-up appointment to be scheduled. If you have not heard from them within the next 2 business days, please call them directly. ) Discharge Diet: As Directed Patient Instructions: Clopidogrel (By mouth), Ischemic Stroke (GEN), Stroke Stoplight Activity Restrictions/Additional Instructions: Please continue dysphagia level 4 diet pur?ed food, extremely thick liquids. Maintain aspiration precautions. Follow-up with primary provider and neurology for reassessment after stroke. Continue aspirin. Take Plavix for 21 days. Maintain fall precautions with risk of bleeding with aspirin and Plavix. Please stop meloxicam, avoid any NSAIDs so as not to increase risk of stroke. Discharge Attestations Time Spent in Discharge Care*: greater than 30 min Quality Metrics Clinical Quality Measures [ No reported AMI, CVA or VTE this stay] Coding Level of Care Code 82719 Total time (in minutes) for Discharge: 45 Diagnoses CVA (cerebral vascular accident) I63.9 Primary hypertension I10 Hypertension type: primary hypertension Moderate late onset Alzheimer's dementia without behavioral disturbance, psychotic disturbance, mood disturbance, or anxiety G30.1; F02.B0 Alzheimer's disease onset: late onset Dementia behavioral or psychological symptom: without behavioral, psychotic, or mood disturbance or anxiety Dementia severity: moderate Dementia type: Alzheimer's
== END 2024-06-09 17:22 | disposition home or self-care (01) ==
LOC: ER 09:12 → MEDSURG 12:19
PROVIDERS: Admitting Provider Internal Medicine; Emergency Provider Family Medicine; PCP Family Medicine; Visit Provider Internal Medicine
DX: I63.9 Cerebral infarction, unspecified (principal); R29.703 NIHSS score 3; I10 Essential (primary) hypertension; G30.1 Alzheimer's disease with late onset; F02.B0 Dementia in other diseases classified elsewhere, moderate, without behavioral disturbance, psychotic disturbance, mood disturbance, and anxiety; E03.9 Hypothyroidism, unspecified
CPT/HCPCS: 36415; 36416; 70450; 70496; 70498; 71045; 80048; 80053; 80061; 80306; 81001; 82962; 83036; 85025; 85610; 85730; 92523; 92526; 92610; 93005; 93306; 96360; 96361; 97161; 97165; 97530; 99285; G0378; J7030

== ENCOUNTER → 2024-08-16 14:56 | Outpatient (BNVA) | payer MEDICARE, SELFPAY | PROVIDERS: PCP Family Medicine; Referring Provider Family Medicine; Visit Provider Specialist | DX: I63.9 Cerebral infarction, unspecified (principal); G31.09 Other frontotemporal neurocognitive disorder; F02.80 Dementia in other diseases classified elsewhere, unspecified severity, without behavioral disturbance, psychotic disturbance, mood disturbance, and anxiety | CPT/HCPCS: 99205 ==

== ENCOUNTER → 2024-12-20 09:23 | Outpatient (BNVA) | payer MEDICARE, SELFPAY | PROVIDERS: PCP Family Medicine; Visit Provider Specialist | DX: G31.09 Other frontotemporal neurocognitive disorder (principal); F02.80 Dementia in other diseases classified elsewhere, unspecified severity, without behavioral disturbance, psychotic disturbance, mood disturbance, and anxiety; I63.9 Cerebral infarction, unspecified | CPT/HCPCS: 99214 ==